=== PATIENT | female | born 1940 | race African-American/Black ===

== ENCOUNTER 2017-02-14 09:37 | Emergency (ER) | payer MEDICARE, MEDICAID ==
[~2017-02-14] VITALS: Ht 170.2 cm; Wt 86.8 kg
[2017-02-14] MEDS ORDERED: FLUO10TA3 PO (10:02)
[2017-02-14] MEDS ORDERED: ALEN70TA48 PO (10:02)
[2017-02-14] MEDS ORDERED: CALC-1085 PO (10:02)
[2017-02-14] MEDS ORDERED: TRAM50TA4 PO (10:02)
[2017-02-14] MEDS ORDERED: ARIP10TA8 PO (10:02)
[2017-02-14] MEDS ORDERED: ONDA4 PO (10:02)
[2017-02-14] MEDS ORDERED: CLON.5 PO (10:02)
[2017-02-14] MEDS ORDERED: BIMA12.5OS OU (10:02)
[2017-02-14] MEDS ORDERED: DIVA250T25 PO (10:02)
[2017-02-14] MEDS ORDERED: HYD50 PO (10:02)
[2017-02-14 10:33] LABS: BASOPHILS % (AUTO) 2.1 % (0.0-2.0); HEMOGLOBIN 13.4 g/dL (12.0-16.0); LYMPHOCYTES # (AUTO) 1.7 K/uL (1.0-4.8); LYMPHOCYTES % (AUTO) 36.6 % (22.0-44.0); MEAN CORPUSCULAR HEMOGLOBIN 30.3 pg (26.0-34.0); MEAN CORPUSCULAR HGB CONC 33.6 G/dL (31.0-37.0); MEAN CORPUSCULAR VOLUME 90 fL (80-100); MONOCYTES # (AUTO) 0.4 K/uL (0.1-1.0); MONOCYTES % (AUTO) 9.3 % (2.0-9.0); NEUTROPHILS # (AUTO) 2.1 K/uL (1.8-7.7); PLATELET COUNT (AUTO) 234 K/uL (150-450); RED BLOOD CELL COUNT(AUTO) 4.44 MIL/uL (4.00-5.20); WHITE BLOOD COUNT (AUTO) 4.5 K/uL (4.5-11.0)
[2017-02-14 10:37] LABS: ANION GAP 5 mmol/L (8-16); CALCIUM, TOTAL 9.2 mg/dL (8.8-10.5); CARBON DIOXIDE 34 mmol/L (22-29); CHLORIDE 101 mmol/L (98-107); CREATININE 0.85 mg/dL (0.60-1.30); GLOMERULAR FILTR. RATE CALC > 60 mL/min (>60); POTASSIUM 4.3 mmol/L (3.5-5.1); SODIUM SERUM 140 mmol/L (136-145); UREA NITROGEN, BLOOD 15 mg/dL (7-18)
[2017-02-14 10:43] LABS: BILIRUBIN,TOTAL 0.5 mg/dL (0.1-1.0)
[2017-02-14 10:44] LABS: ALANINE AMINOTRANSFERASE 13 U/L (12-78); ALBUMIN 3.5 g/dL (3.4-5.0); ASPARTATE AMINOTRANSFERASE 14 U/L (15-37); TOTAL PROTEIN, SERUM 7.5 g/dL (6.4-8.2)
[2017-02-14] MEDS ORDERED: KETOROLAC TROMETHAMINE 30 MG/ML VIAL IVP ONE (11:00)
[2017-02-14 13:47] VITALS: BP 119/75
== END 2017-02-14 13:53 | disposition home or self-care (01) ==
LOC: EMS 09:38
DX: M17.12 Unilateral primary osteoarthritis, left knee (principal)
CPT/HCPCS: 36415; 73562; 80053; 85025; 93005; 93971; 96374; 99285; J1885

== ENCOUNTER 2017-03-17 14:03 | Inpatient (IN) | payer MEDICARE, MEDICAID ==
[~2017-03-17] VITALS: Ht 170.2 cm; Wt 86.2 kg
[~2017-03-17 14:03] MED LIST: ALEN70TA48 PO; ARIP10TA8 PO; BIMA12.5OS OU; CALC-1085 PO; CLON.5 PO; DIVA250T25 PO; FLUO10TA3 PO; HYD50 PO; ONDA4 PO; TRAM50TA4 PO
[2017-03-17 15:32] LABS: BASOPHILS # (AUTO) 0.06 K/uL (0.00-0.20); BASOPHILS % (AUTO) 0.6 % (0.0-2.0); EOSINOPHILS % (AUTO) 0.01 % (1.0-6.0); HEMATOCRIT 39.5 % (36-46); LYMPHOCYTES # (AUTO) 1.8 K/uL (1.0-4.8); LYMPHOCYTES % (AUTO) 16.2 % (22.0-44.0); MEAN CORPUSCULAR HEMOGLOBIN 30.3 pg (26.0-34.0); MEAN CORPUSCULAR HGB CONC 32.9 G/dL (31.0-37.0); MEAN CORPUSCULAR VOLUME 92 fL (80-100); MONOCYTES # (AUTO) 0.7 K/uL (0.1-1.0); MONOCYTES % (AUTO) 6.4 % (2.0-9.0); NEUTROPHILS # (AUTO) 8.4 K/uL (1.8-7.7); NEUTROPHILS % (AUTO) 76.8 % (40.0-70.0); PLATELET COUNT (AUTO) 266 K/uL (150-450); RED BLOOD CELL COUNT(AUTO) 4.29 MIL/uL (4.00-5.20); RED CELL DISTRIBUTION WIDTH 15.2 % (11.5-14.5); WHITE BLOOD COUNT (AUTO) 10.9 K/uL (4.5-11.0)
[2017-03-17 15:39] LABS: ANION GAP 6 mmol/L (8-16); CALCIUM, TOTAL 9.2 mg/dL (8.8-10.5); CARBON DIOXIDE 39 mmol/L (22-29); CHLORIDE 100 mmol/L (98-107); CREATININE 0.81 mg/dL (0.60-1.30); GLOMERULAR FILTR. RATE CALC > 60 mL/min (>60); POTASSIUM 3.2 mmol/L (3.5-5.1); SODIUM SERUM 145 mmol/L (136-145); UREA NITROGEN, BLOOD 25 mg/dL (7-18)
[2017-03-17 15:45] LABS: ALANINE AMINOTRANSFERASE 16 U/L (12-78); ALBUMIN 3.6 g/dL (3.4-5.0); ASPARTATE AMINOTRANSFERASE 14 U/L (15-37); BILIRUBIN,TOTAL 0.5 mg/dL (0.1-1.0); TOTAL PROTEIN, SERUM 7.6 g/dL (6.4-8.2)
[2017-03-17] MEDS ORDERED: QUEtiapine FUMARATE 25 MG TABLET PO PRN (16:15)
[2017-03-17] MEDS ORDERED: MAG HYDROX/AL HYDROX/SIMETH ES 30 ML SUSPENSION UDCUP PO PRN (16:15)
[2017-03-17] MEDS ORDERED: LOPERAMIDE HCL 2 MG CAPSULE PO PRN (16:15)
[2017-03-17] MEDS ORDERED: TUBERCULIN, PURIFIED PROTEIN DERIVATIVE 5 TU/0.1 ML SYG ID ONE (16:15)
[2017-03-17] MEDS ORDERED: GuaiFENesin/D-METHORPHAN [SUGAR-FREE] 200-20MG/10 ML SYRUP UDCUP PO PRN (16:15)
[2017-03-17] MEDS ORDERED: HydrOXYzine PAMOATE 50 MG CAPSULE PO PRN (16:15)
[2017-03-17] MEDS ORDERED: LORazepam 2 MG TABLET PO PRN (16:15)
[2017-03-17] MEDS ORDERED: ZOLPIDEM TARTRATE 10 MG TABLET PO PRN (16:15)
[2017-03-17] MEDS ORDERED: MAGNESIUM HYDROXIDE SUSPENSION 30 ML UDCUP PO PRN (16:15)
[2017-03-17] MEDS ORDERED: ACETAMINOPHEN 325 MG TABLET PO PRN (16:15)
[2017-03-17] MEDS ORDERED: PROMETHAZINE HCL 25 MG TABLET PO PRN (16:15)
[2017-03-17] MEDS ORDERED: POTASSIUM CHLORIDE 20 MEQ ER TABLET PO ONE (19:30)
[2017-03-17 19:38] LABS: APPEARANCE,URINE CLEAR (CLEAR); GLUCOSE, URINE (UA) NEGATIVE (NEGATIVE); KETONES,URINE NEGATIVE (NEGATIVE); LEUKOCYTE ESTERASE ,URINE NEGATIVE (NEGATIVE); OCCULT BLOOD,URINE NEGATIVE (NEGATIVE); PROTEIN,URINE NEGATIVE (NEGATIVE)
[2017-03-17 19:43] LABS: ADD UA MICROSCOPIC NO
[2017-03-17] MEDS: THIAMINE HCL 100 MG TABLET PO SCH (20:00)
[2017-03-17] MEDS: DIVALPROEX SODIUM 500 MG ER TABLET PO SCH (20:00)
[2017-03-17 20:46] VITALS: BP 126/76
[2017-03-18 06:27] VITALS: BP 115/65
[2017-03-18 06:50] LABS: BASOPHILS % (AUTO) 0.3 % (0.0-2.0); EOSINOPHILS % (AUTO) 0.1 % (1.0-6.0); HEMOGLOBIN 12.4 g/dL (12.0-16.0); LYMPHOCYTES # (AUTO) 2.1 K/uL (1.0-4.8); LYMPHOCYTES % (AUTO) 27.6 % (22.0-44.0); MEAN CORPUSCULAR HEMOGLOBIN 30.7 pg (26.0-34.0); MEAN CORPUSCULAR HGB CONC 33.6 G/dL (31.0-37.0); MEAN CORPUSCULAR VOLUME 91 fL (80-100); MONOCYTES # (AUTO) 0.6 K/uL (0.1-1.0); MONOCYTES % (AUTO) 8.4 % (2.0-9.0); NEUTROPHILS # (AUTO) 4.9 K/uL (1.8-7.7); NEUTROPHILS % (AUTO) 63.6 % (40.0-70.0); PLATELET COUNT (AUTO) 255 K/uL (150-450); RED BLOOD CELL COUNT(AUTO) 4.05 MIL/uL (4.00-5.20); RED CELL DISTRIBUTION WIDTH 15.5 % (11.5-14.5); WHITE BLOOD COUNT (AUTO) 7.7 K/uL (4.5-11.0)
[2017-03-18 07:18] LABS: ALANINE AMINOTRANSFERASE 15 U/L (12-78); ALBUMIN 2.9 g/dL (3.4-5.0); ANION GAP 4 mmol/L (8-16); ASPARTATE AMINOTRANSFERASE 11 U/L (15-37); BILIRUBIN,TOTAL 0.4 mg/dL (0.1-1.0); CALCIUM, TOTAL 8.9 mg/dL (8.8-10.5); CARBON DIOXIDE 35 mmol/L (22-29); CHLORIDE 104 mmol/L (98-107); CHOL/HDL RATIO 2.7 (3.9-5.7); CREATININE 0.72 mg/dL (0.60-1.30); GLOMERULAR FILTR. RATE CALC > 60 mL/min (>60); POTASSIUM 3.9 mmol/L (3.5-5.1); SODIUM SERUM 143 mmol/L (136-145); THYROID STIMULATING HORMONE 1.28 uIU/mL (0.36-3.74); UREA NITROGEN, BLOOD 23 mg/dL (7-18); VALPROIC ACID 61 mcg/mL (50-100)
[2017-03-18 07:28] LABS: HEMOGLOBIN A1C 5.5 % (4.5-6.2)
[2017-03-18] MEDS: THIAMINE HCL 100 MG TABLET PO SCH ×2 (08:30→15:55)
[2017-03-18] MEDS: MULTIVITAMINS WITH MINERALS, THERAPEUTIC TABLET PO SCH (08:30)
[2017-03-18] MEDS: POTASSIUM CHLORIDE 20 MEQ ER TABLET PO SCH (08:30)
[2017-03-18] MEDS: CALCIUM OYSTER SHELL 500 MG TABLET PO SCH (08:30)
[2017-03-18] MEDS: BUMETANIDE 1 MG TABLET PO SCH (08:30)
[2017-03-18] MEDS: CHOLECALCIFEROL (VIT D3) 1,000 UNITS TABLET PO SCH (08:30)
[2017-03-18] MEDS: ARIPiprazole 10 MG TABLET PO SCH (08:31)
[2017-03-18] MEDS: BIMATOPROST 0.01% 2.5 ML OPHTHALMIC SOLUTION OU SCH (08:31)
[2017-03-18] MEDS: FOLIC ACID 1 MG TABLET PO SCH (08:31)
[2017-03-18] MEDS: FLUoxetine HCL 20 MG CAPSULE PO SCH (08:31)
[2017-03-18 10:04] VITALS: BP 105/66
[2017-03-18 17:10] VITALS: BP 103/65
[2017-03-18] MEDS: DIVALPROEX SODIUM 500 MG ER TABLET PO SCH (20:09)
[2017-03-19 08:05] VITALS: BP 134/66
[2017-03-19] MEDS: CHOLECALCIFEROL (VIT D3) 1,000 UNITS TABLET PO SCH (08:27)
[2017-03-19] MEDS: MULTIVITAMINS WITH MINERALS, THERAPEUTIC TABLET PO SCH (08:27)
[2017-03-19] MEDS: THIAMINE HCL 100 MG TABLET PO SCH ×2 (08:27→16:38)
[2017-03-19] MEDS: BIMATOPROST 0.01% 2.5 ML OPHTHALMIC SOLUTION OU SCH (08:28)
[2017-03-19] MEDS: BUMETANIDE 1 MG TABLET PO SCH (08:28)
[2017-03-19] MEDS: ARIPiprazole 10 MG TABLET PO SCH (08:28)
[2017-03-19] MEDS: FOLIC ACID 1 MG TABLET PO SCH (08:28)
[2017-03-19] MEDS: FLUoxetine HCL 20 MG CAPSULE PO SCH (08:29)
[2017-03-19] MEDS: POTASSIUM CHLORIDE 20 MEQ ER TABLET PO SCH (08:29)
[2017-03-19] MEDS: CALCIUM OYSTER SHELL 500 MG TABLET PO SCH (08:29)
[2017-03-19 18:06] VITALS: BP 121/67
[2017-03-19] MEDS: DIVALPROEX SODIUM 500 MG ER TABLET PO SCH (21:21)
[2017-03-20] MEDS ORDERED: ALENDRONATE SODIUM 70 MG TABLET PO SCH (06:30)
[2017-03-20 08:15] VITALS: BP 119/70
[2017-03-20] MEDS: ARIPiprazole 10 MG TABLET PO SCH (08:20)
[2017-03-20] MEDS: BUMETANIDE 1 MG TABLET PO SCH (08:20)
[2017-03-20] MEDS: BIMATOPROST 0.01% 2.5 ML OPHTHALMIC SOLUTION OU SCH (08:20)
[2017-03-20] MEDS: POTASSIUM CHLORIDE 20 MEQ ER TABLET PO SCH (08:21)
[2017-03-20] MEDS: FOLIC ACID 1 MG TABLET PO SCH (08:21)
[2017-03-20] MEDS: CALCIUM OYSTER SHELL 500 MG TABLET PO SCH (08:22)
[2017-03-20] MEDS: MULTIVITAMINS WITH MINERALS, THERAPEUTIC TABLET PO SCH (08:27)
[2017-03-20] MEDS: CHOLECALCIFEROL (VIT D3) 1,000 UNITS TABLET PO SCH (08:27)
[2017-03-20] MEDS: THIAMINE HCL 100 MG TABLET PO SCH ×2 (08:27→16:16)
[2017-03-20] MEDS: FLUoxetine HCL 20 MG CAPSULE PO SCH (08:28)
[2017-03-20 17:05] VITALS: BP 124/76
[2017-03-20] MEDS: DIVALPROEX SODIUM 500 MG ER TABLET PO SCH (20:29)
[2017-03-21 08:15] VITALS: BP 121/87
[2017-03-21] MEDS: THIAMINE HCL 100 MG TABLET PO SCH ×2 (08:59→16:35)
[2017-03-21] MEDS: CHOLECALCIFEROL (VIT D3) 1,000 UNITS TABLET PO SCH (08:59)
[2017-03-21] MEDS: ARIPiprazole 10 MG TABLET PO SCH (08:59)
[2017-03-21] MEDS: CALCIUM OYSTER SHELL 500 MG TABLET PO SCH (08:59)
[2017-03-21] MEDS: BIMATOPROST 0.01% 2.5 ML OPHTHALMIC SOLUTION OU SCH (08:59)
[2017-03-21] MEDS: FLUoxetine HCL 20 MG CAPSULE PO SCH (08:59)
[2017-03-21] MEDS: FOLIC ACID 1 MG TABLET PO SCH (08:59)
[2017-03-21] MEDS: POTASSIUM CHLORIDE 20 MEQ ER TABLET PO SCH (08:59)
[2017-03-21] MEDS: MULTIVITAMINS WITH MINERALS, THERAPEUTIC TABLET PO SCH (09:00)
[2017-03-21] MEDS: BUMETANIDE 1 MG TABLET PO SCH (09:00)
[2017-03-21 17:00] VITALS: BP 104/70
[2017-03-21] MEDS: DIVALPROEX SODIUM 500 MG ER TABLET PO SCH (20:15)
[2017-03-22 01:05] VITALS: BP 122/84
[2017-03-22 08:05] VITALS: BP 107/75
[2017-03-22] MEDS: CHOLECALCIFEROL (VIT D3) 1,000 UNITS TABLET PO SCH (09:03)
[2017-03-22] MEDS: BUMETANIDE 1 MG TABLET PO SCH (09:03)
[2017-03-22] MEDS: POTASSIUM CHLORIDE 20 MEQ ER TABLET PO SCH (09:03)
[2017-03-22] MEDS: FOLIC ACID 1 MG TABLET PO SCH (09:03)
[2017-03-22] MEDS: ARIPiprazole 10 MG TABLET PO SCH (09:03)
[2017-03-22] MEDS: CALCIUM OYSTER SHELL 500 MG TABLET PO SCH (09:03)
[2017-03-22] MEDS: MULTIVITAMINS WITH MINERALS, THERAPEUTIC TABLET PO SCH (09:04)
[2017-03-22] MEDS: FLUoxetine HCL 20 MG CAPSULE PO SCH (09:04)
[2017-03-22] MEDS: THIAMINE HCL 100 MG TABLET PO SCH ×2 (09:04→16:24)
[2017-03-22] MEDS: BIMATOPROST 0.01% 2.5 ML OPHTHALMIC SOLUTION OU SCH (09:19)
[2017-03-22 17:00] VITALS: BP 100/68
[2017-03-22] MEDS ORDERED: ARIP10TA8 PO (19:11)
[2017-03-22] MEDS ORDERED: FLUO-191 PO (19:11)
[2017-03-22] MEDS ORDERED: DIVA500T52 PO (19:11)
[2017-03-22] MEDS: DIVALPROEX SODIUM 500 MG ER TABLET PO SCH (20:42)
[2017-03-23] MEDS: BIMATOPROST 0.01% 2.5 ML OPHTHALMIC SOLUTION OU SCH (08:00)
[2017-03-23] MEDS: FOLIC ACID 1 MG TABLET PO SCH (08:00)
[2017-03-23] MEDS: THIAMINE HCL 100 MG TABLET PO SCH (08:00)
[2017-03-23] MEDS: ARIPiprazole 10 MG TABLET PO SCH (08:00)
[2017-03-23] MEDS: MULTIVITAMINS WITH MINERALS, THERAPEUTIC TABLET PO SCH (08:00)
[2017-03-23] MEDS: BUMETANIDE 1 MG TABLET PO SCH (08:00)
[2017-03-23] MEDS: CALCIUM OYSTER SHELL 500 MG TABLET PO SCH (08:00)
[2017-03-23] MEDS: FLUoxetine HCL 20 MG CAPSULE PO SCH (08:01)
[2017-03-23] MEDS: CHOLECALCIFEROL (VIT D3) 1,000 UNITS TABLET PO SCH (08:01)
[2017-03-23] MEDS: POTASSIUM CHLORIDE 20 MEQ ER TABLET PO SCH (08:01)
[2017-03-23 09:41] VITALS: BP 117/76
[2017-03-23] MEDS ORDERED: MULT-1203 PO (11:17)
[2017-03-23] MEDS ORDERED: BUME1TAB17 PO (11:17)
[2017-03-23] MEDS ORDERED: KDUR20 PO (11:19)
== END 2017-03-23 12:00 | disposition home or self-care (01) | DRG 885 ==
LOC: EMS 14:04 → 3EX 17:10
PROVIDERS: ADMIT Psychiatry & Neurology Psychiatry; ATTEND Psychiatry & Neurology Psychiatry
DX: F31.9 Bipolar disorder, unspecified (principal); R45.851 Suicidal ideations; Z91.19 Patient's noncompliance with other medical treatment and regimen; E66.9 Obesity, unspecified; H40.9 Unspecified glaucoma; M19.90 Unspecified osteoarthritis, unspecified site; M81.0 Age-related osteoporosis without current pathological fracture; Z59.9 Problem related to housing and economic circumstances, unspecified; Z65.3 Problems related to other legal circumstances; Z68.32 Body mass index [BMI] 32.0-32.9, adult; Z79.83 Long term (current) use of bisphosphonates; Z79.899 Other long term (current) drug therapy; Z90.49 Acquired absence of other specified parts of digestive tract
CPT/HCPCS: 82306; 83036; 84439; 84443; 86592; 93005; 99285; G0480

== ENCOUNTER 2017-04-11 18:58 | Emergency (ER) | payer MEDICARE, MEDICAID ==
[~2017-04-11] VITALS: Ht 167.6 cm; Wt 90.4 kg
[~2017-04-11 18:58] MED LIST changes: +BUME1TAB17 PO; -CLON.5 PO; -DIVA250T25 PO; +DIVA500T52 PO; +FLUO-191 PO; -FLUO10TA3 PO; -HYD50 PO; +KDUR20 PO; +MULT-1203 PO; -ONDA4 PO; -TRAM50TA4 PO
[2017-04-11] MEDS ORDERED: DIVA125T PO (19:22)
[2017-04-11] MEDS ORDERED: CLON.5 PO (19:22)
[2017-04-11] MEDS ORDERED: SODIUM CHLORIDE 0.9% 1,000 ML IV ONE (19:30)
[2017-04-11] MEDS ORDERED: ACETAMINOPHEN 500 MG TABLET PO ONE ×2 (19:30→23:15)
[2017-04-11 20:48] LABS: BASOPHILS # (AUTO) 0.02 K/uL (0.00-0.20); BASOPHILS % (AUTO) 0.3 % (0.0-2.0); EOSINOPHILS # (AUTO) 0.01 K/uL (0.00-0.70); HEMATOCRIT 37.8 % (36-46); HEMOGLOBIN 12.8 g/dL (12.0-16.0); LYMPHOCYTES # (AUTO) 0.8 K/uL (1.0-4.8); LYMPHOCYTES % (AUTO) 11.4 % (22.0-44.0); MEAN CORPUSCULAR HEMOGLOBIN 30.1 pg (26.0-34.0); MEAN CORPUSCULAR VOLUME 89 fL (80-100); MONOCYTES # (AUTO) 0.6 K/uL (0.1-1.0); MONOCYTES % (AUTO) 7.6 % (2.0-9.0); NEUTROPHILS # (AUTO) 5.9 K/uL (1.8-7.7); NEUTROPHILS % (AUTO) 80.6 % (40.0-70.0); PLATELET COUNT (AUTO) 176 K/uL (150-450); RED BLOOD CELL COUNT(AUTO) 4.27 MIL/uL (4.00-5.20); RED CELL DISTRIBUTION WIDTH 15.3 % (11.5-14.5); WHITE BLOOD COUNT (AUTO) 7.4 K/uL (4.5-11.0)
[2017-04-11 20:57] LABS: LACTIC ACID 2.9 mmol/L (0.4-2.0)
[2017-04-11 20:57] LABS: APPEARANCE,URINE CLOUDY (CLEAR); GLUCOSE, URINE (UA) NEGATIVE (NEGATIVE); KETONES,URINE NEGATIVE (NEGATIVE); LEUKOCYTE ESTERASE ,URINE MODERATE (NEGATIVE); OCCULT BLOOD,URINE TRACE (NEGATIVE); PH,URINE 6.5 (5.0-8.0); PROTEIN,URINE NEGATIVE (NEGATIVE)
[2017-04-11 20:59] LABS: ADD UA MICROSCOPIC YES
[2017-04-11 21:01] LABS: ALANINE AMINOTRANSFERASE 25 U/L (12-78); ALBUMIN 2.5 g/dL (3.4-5.0); ANION GAP 12 mmol/L (8-16); ASPARTATE AMINOTRANSFERASE 34 U/L (15-37); BILIRUBIN,TOTAL 0.5 mg/dL (0.1-1.0); CALCIUM, TOTAL 7.9 mg/dL (8.8-10.5); CARBON DIOXIDE 25 mmol/L (22-29); CHLORIDE 99 mmol/L (98-107); CREATININE 0.89 mg/dL (0.60-1.30); GLOMERULAR FILTR. RATE CALC > 60 mL/min (>60); SODIUM SERUM 136 mmol/L (136-145); TOTAL PROTEIN, SERUM 6.3 g/dL (6.4-8.2); UREA NITROGEN, BLOOD 9 mg/dL (7-18)
[2017-04-11 21:03] LABS: POTASSIUM 2.6 mmol/L (3.5-5.1)
[2017-04-11 21:03] LABS: RBC,URINE 0-2 /HPF (0-2); SQUAMOUS EPITHELIAL CELL,UR Few /LPF (None Seen)
[2017-04-11 21:18] LABS: B-TYPE NATRIURETIC PEPTIDE 18 pg/mL (0-100)
[2017-04-11 21:43] LABS: REFLEX LACTIC ACID? YES YES
[2017-04-11 22:06] LABS: INFLUENZA TYPE B NEGATIVE FOR TYPE B (NEGATIVE)
[2017-04-11] MEDS ORDERED: POTASSIUM CHLORIDE 10% 40 MEQ/30 ML LIQUID UDCUP PO ONE (22:15)
[2017-04-11] MEDS ORDERED: CEPHALEXIN MONOHYDRATE 500 MG CAPSULE PO ONE (23:15)
[2017-04-11] MEDS ORDERED: DIPHENOXYLATE/ATROP 2.5-0.025 MG TABLET PO ONE (23:15)
[2017-04-11 23:30] VITALS: BP 109/62
== END 2017-04-11 23:53 | disposition home or self-care (01) ==
LOC: EMS 19:02
DX: K52.9 Noninfective gastroenteritis and colitis, unspecified (principal); E87.6 Hypokalemia
CPT/HCPCS: 36415; 74176; 80053; 81001; 83605; 83880; 85025; 87040; 87077; 87086; 87186; 87804; 93005; 96360; 99285; J7030

== ENCOUNTER 2017-10-17 19:29 | Emergency (ER) | payer MEDICARE, MEDICAID ==
[~2017-10-17] VITALS: Ht 170.2 cm; Wt 96.4 kg
[~2017-10-17 19:29] MED LIST changes: +CLON.5 PO; +DIVA125T PO; -DIVA500T52 PO
[2017-10-17] MEDS ORDERED: TRAM50TA4 PO (19:48)
[2017-10-17 21:18] LABS: APPEARANCE,URINE CLEAR (CLEAR); BILIRUBIN,URINE NEGATIVE (NEGATIVE); GLUCOSE, URINE (UA) NEGATIVE (NEGATIVE); KETONES,URINE NEGATIVE (NEGATIVE); LEUKOCYTE ESTERASE ,URINE TRACE (NEGATIVE); NITRATE,URINE NEGATIVE (NEGATIVE); OCCULT BLOOD,URINE NEGATIVE (NEGATIVE); PH,URINE 6.5 (5.0-8.0); PROTEIN,URINE NEGATIVE (NEGATIVE)
[2017-10-17 21:30] LABS: BACTERIA,URINE Rare /HPF (None Seen); RBC,URINE 0-2 /HPF (0-2); SQUAMOUS EPITHELIAL CELL,UR Many /LPF (None Seen)
[2017-10-17] MEDS ORDERED: KETOROLAC TROMETHAMINE 30 MG/ML VIAL IM ONE (22:00)
[2017-10-17 22:33] VITALS: BP 119/58
== END 2017-10-17 22:55 | disposition home or self-care (01) ==
LOC: EMS 19:30
DX: M25.551 Pain in right hip (principal)
CPT/HCPCS: 73502; 81001; 96372; 99285; J1885

== ENCOUNTER 2018-05-05 18:04 | Emergency (ER) | payer MEDICARE, MEDICAID ==
[~2018-05-05] VITALS: Ht 170.2 cm; Wt 94.1 kg
[~2018-05-05 18:04] MED LIST changes: -ALEN70TA48 PO; -BIMA12.5OS OU; -DIVA125T PO; +DIVA125T32 PO; +TRAM50TA4 PO
[2018-05-05 20:11] LABS: BASOPHILS % (AUTO) 0.2 % (0.0-2.0); EOSINOPHILS % (AUTO) 1.7 % (1.0-6.0); HEMATOCRIT 40.7 % (36-46); HEMOGLOBIN 13.7 g/dL (12.0-16.0); LYMPHOCYTES # (AUTO) 2.7 K/uL (1.0-4.8); LYMPHOCYTES % (AUTO) 38.5 % (22.0-44.0); MEAN CORPUSCULAR HEMOGLOBIN 30.8 pg (26.0-34.0); MEAN CORPUSCULAR HGB CONC 33.5 G/dL (31.0-37.0); MEAN CORPUSCULAR VOLUME 92 fL (80-100); MONOCYTES # (AUTO) 0.5 K/uL (0.1-1.0); MONOCYTES % (AUTO) 7.5 % (2.0-9.0); NEUTROPHILS # (AUTO) 3.6 K/uL (1.8-7.7); NEUTROPHILS % (AUTO) 52.1 % (40.0-70.0); PLATELET COUNT (AUTO) 260 K/uL (150-450); RED BLOOD CELL COUNT(AUTO) 4.44 MIL/uL (4.00-5.20); RED CELL DISTRIBUTION WIDTH 14.5 % (11.5-14.5)
[2018-05-05 20:36] LABS: ANION GAP 6 mmol/L (8-16); CALCIUM, TOTAL 9.2 mg/dL (8.8-10.5); CARBON DIOXIDE 30 mmol/L (22-29); CHLORIDE 107 mmol/L (98-107); CREATININE 0.61 mg/dL (0.60-1.30); GLUCOSE,RANDOM 80 mg/dL (70-110); SODIUM SERUM 143 mmol/L (136-145); UREA NITROGEN, BLOOD 8 mg/dL (7-18)
[2018-05-05 20:37] LABS: GLOMERULAR FILTR. RATE CALC > 60 mL/min (>60)
[2018-05-05 20:43] LABS: ALANINE AMINOTRANSFERASE 20 U/L (12-78); ALBUMIN 3.3 g/dL (3.4-5.0); ALKALINE PHOSPHATASE 49 U/L (46-116); ASPARTATE AMINOTRANSFERASE 20 U/L (15-37); BILIRUBIN,TOTAL 0.9 mg/dL (0.1-1.0); TOTAL PROTEIN, SERUM 6.4 g/dL (6.4-8.2)
[2018-05-05 20:54] LABS: VALPROIC ACID < 3 mcg/mL (50-100)
[2018-05-05 22:34] LABS: AMPHET/METH SCREEN,URINE NEGATIVE (NEGATIVE); BARBITURATE SCREEN, URINE NEGATIVE (NEGATIVE); BENZODIAZEPINES SCREEN,URINE NEGATIVE (NEGATIVE); CANNABINOID SCREEN,URINE NEGATIVE (NEGATIVE); COCAINE SCREEN,URINE NEGATIVE (NEGATIVE); METHADONE SCREEN, URINE NEGATIVE (NEGATIVE); OPIATE SCREEN,URINE NEGATIVE (NEGATIVE)
[2018-05-05 22:35] LABS: PHENCYCLIDINE SCREEN,URINE NEGATIVE (NEGATIVE)
[2018-05-05 22:43] VITALS: BP 128/68
== END 2018-05-05 22:44 | disposition home or self-care (01) ==
LOC: EMS 18:05
DX: R45.851 Suicidal ideations (principal); F32.9 Major depressive disorder, single episode, unspecified; M19.90 Unspecified osteoarthritis, unspecified site
CPT/HCPCS: 36415; 80053; 80164; 80307; 85025; 99285; G0480

== ENCOUNTER 2018-05-17 14:53 | Emergency (ER) | payer MEDICARE, MEDICAID ==
[~2018-05-17] VITALS: Ht 170.2 cm; Wt 106.8 kg
[2018-05-17 16:33] LABS: BASOPHILS % (AUTO) 0.4 % (0.0-2.0); HEMATOCRIT 40.6 % (36-46); HEMOGLOBIN 13.5 g/dL (12.0-16.0); LYMPHOCYTES # (AUTO) 2.2 K/uL (1.0-4.8); LYMPHOCYTES % (AUTO) 35.8 % (22.0-44.0); MEAN CORPUSCULAR HEMOGLOBIN 30.6 pg (26.0-34.0); MEAN CORPUSCULAR HGB CONC 33.3 G/dL (31.0-37.0); MEAN CORPUSCULAR VOLUME 92 fL (80-100); MONOCYTES # (AUTO) 0.4 K/uL (0.1-1.0); MONOCYTES % (AUTO) 6.9 % (2.0-9.0); NEUTROPHILS # (AUTO) 3.5 K/uL (1.8-7.7); NEUTROPHILS % (AUTO) 55.9 % (40.0-70.0); PLATELET COUNT (AUTO) 200 K/uL (150-450); RED BLOOD CELL COUNT(AUTO) 4.43 MIL/uL (4.00-5.20); RED CELL DISTRIBUTION WIDTH 14.3 % (11.5-14.5)
[2018-05-17 16:43] LABS: ANION GAP 4 mmol/L (8-16); CALCIUM, TOTAL 9.2 mg/dL (8.8-10.5); CARBON DIOXIDE 33 mmol/L (22-29); CHLORIDE 101 mmol/L (98-107); CREATININE 0.65 mg/dL (0.60-1.30); GLOMERULAR FILTR. RATE CALC > 60 mL/min (>60); GLUCOSE,RANDOM 78 mg/dL (70-110); POTASSIUM 4.4 mmol/L (3.5-5.1); SODIUM SERUM 138 mmol/L (136-145); UREA NITROGEN, BLOOD 11 mg/dL (7-18)
[2018-05-17 16:52] LABS: ALANINE AMINOTRANSFERASE 11 U/L (12-78); ALBUMIN 3.1 g/dL (3.4-5.0); ALKALINE PHOSPHATASE 41 U/L (46-116); ASPARTATE AMINOTRANSFERASE 15 U/L (15-37); BILIRUBIN,TOTAL 0.7 mg/dL (0.1-1.0); TOTAL PROTEIN, SERUM 6.3 g/dL (6.4-8.2); VALPROIC ACID 110 mcg/mL (50-100)
[2018-05-17 16:56] VITALS: BP 109/71
== END 2018-05-17 18:07 | disposition home or self-care (01) ==
LOC: EMS 14:54
DX: S30.0XXA Contusion of lower back and pelvis, initial encounter (principal); T42.6X5A Adverse effect of other antiepileptic and sedative-hypnotic drugs, initial encounter; R53.1 Weakness; R42 Dizziness and giddiness; F32.9 Major depressive disorder, single episode, unspecified; Y92.89 Other specified places as the place of occurrence of the external cause; W01.0XXA Fall on same level from slipping, tripping and stumbling without subsequent striking against object, initial encounter; Y93.89 Activity, other specified; Y99.8 Other external cause status
CPT/HCPCS: 70450; 72170

== ENCOUNTER 2019-05-12 16:45 | Emergency (ER) | payer MEDICARE, OTHER ==
[~2019-05-12] VITALS: Ht 165.1 cm; Wt 79.5 kg
[~2019-05-12 16:45] MED LIST changes: -BUME1TAB17 PO; +BUME1TAB34 PO
[2019-05-12 18:08] LABS: BASOPHILS % (AUTO) 0.5 % (0.0-2.0); EOSINOPHILS % (AUTO) 0.1 % (1.0-6.0); HEMOGLOBIN 11.3 g/dL (12.0-16.0); LYMPHOCYTES # (AUTO) 1.9 K/uL (1.0-4.8); LYMPHOCYTES % (AUTO) 25.6 % (22.0-44.0); MEAN CORPUSCULAR HEMOGLOBIN 30.4 pg (26.0-34.0); MEAN CORPUSCULAR HGB CONC 33.4 G/dL (31.0-37.0); MEAN CORPUSCULAR VOLUME 91 fL (80-100); MONOCYTES # (AUTO) 0.5 K/uL (0.1-1.0); MONOCYTES % (AUTO) 6.4 % (2.0-9.0); NEUTROPHILS # (AUTO) 5.1 K/uL (1.8-7.7); NEUTROPHILS % (AUTO) 67.4 % (40.0-70.0); PLATELET COUNT (AUTO) 337 K/uL (150-450); RED BLOOD CELL COUNT(AUTO) 3.73 MIL/uL (4.00-5.20); RED CELL DISTRIBUTION WIDTH 15.5 % (11.5-14.5)
[2019-05-12 18:19] LABS: ANION GAP 10 mmol/L (8-16); CALCIUM, TOTAL 9.6 mg/dL (8.8-10.5); CARBON DIOXIDE 26 mmol/L (22-29); CHLORIDE 112 mmol/L (98-107); CREATININE 1.05 mg/dL (0.60-1.30); GLUCOSE,RANDOM 90 mg/dL (70-110); POTASSIUM 4.8 mmol/L (3.5-5.1); SODIUM SERUM 148 mmol/L (136-145); UREA NITROGEN, BLOOD 18 mg/dL (7-18)
[2019-05-12 18:23] LABS: GLOMERULAR FILTR. RATE CALC > 60 mL/min (>60)
[2019-05-12 18:26] LABS: ALANINE AMINOTRANSFERASE 29 U/L (12-78); ALBUMIN 3.3 g/dL (3.4-5.0); ALKALINE PHOSPHATASE 54 U/L (46-116); ASPARTATE AMINOTRANSFERASE 16 U/L (15-37); BILIRUBIN,TOTAL 0.6 mg/dL (0.1-1.0); TOTAL PROTEIN, SERUM 6.6 g/dL (6.4-8.2)
[2019-05-12 22:51] VITALS: BP 131/77
== END 2019-05-12 23:27 | disposition short-term general hospital (02) ==
LOC: EMS 16:48
DX: F32.9 Major depressive disorder, single episode, unspecified (principal)
CPT/HCPCS: 36415; 80053; 85025; 99285; G0480

== ENCOUNTER 2020-04-08 18:02 | Inpatient (IN) | payer MEDICARE, OTHER ==
[~2020-04-08] VITALS: Ht 170.2 cm; Wt 77.8 kg
[~2020-04-08 18:02] MED LIST changes: +CLON-592 PO; -CLON.5 PO; -KDUR20 PO; +POTA20TA83 PO
[2020-04-08] MEDS ORDERED: 0.9% SODIUM CHLORIDE 10 ML SYRINGE IVP PRN ×2 (18:30→21:15)
[2020-04-08 19:48] LABS: BASOPHILS % (AUTO) 0.5 % (0.0-2.0); EOSINOPHILS % (AUTO) 1.2 % (1.0-6.0); HEMATOCRIT 36.9 % (36-46); HEMOGLOBIN 11.9 g/dL (12.0-16.0); LYMPHOCYTES # (AUTO) 2.2 K/uL (1.0-4.8); LYMPHOCYTES % (AUTO) 11.2 % (22.0-44.0); MEAN CORPUSCULAR HEMOGLOBIN 28.6 pg (26.0-34.0); MEAN CORPUSCULAR HGB CONC 32.3 G/dL (31.0-37.0); MEAN CORPUSCULAR VOLUME 89 fL (80-100); MONOCYTES # (AUTO) 1.8 K/uL (0.1-1.0); MONOCYTES % (AUTO) 9.2 % (2.0-9.0); NEUTROPHILS # (AUTO) 15.1 K/uL (1.8-7.7); NEUTROPHILS % (AUTO) 77.9 % (40.0-70.0); PLATELET COUNT (AUTO) 370 K/uL (150-450); RED BLOOD CELL COUNT(AUTO) 4.16 MIL/uL (4.00-5.20); RED CELL DISTRIBUTION WIDTH 18.5 % (11.5-14.5)
[2020-04-08 19:48] LABS: COVID AG,FIA SOURCE NASOPHARYNGEAL
[2020-04-08 19:57] LABS: ANION GAP 7 mmol/L (8-16); CALCIUM, TOTAL 9.1 mg/dL (8.8-10.5); CARBON DIOXIDE 28 mmol/L (22-29); CHLORIDE 105 mmol/L (98-107); GLUCOSE,RANDOM 90 mg/dL (70-110); POTASSIUM 3.8 mmol/L (3.5-5.1); SODIUM SERUM 140 mmol/L (136-145); UREA NITROGEN, BLOOD 16 mg/dL (7-18)
[2020-04-08 19:59] LABS: D-DIMER 1.95 mg/L FEU (0.00-0.50); PROTHROMBIN TIME 10.3 SEC (9.4-11.6)
[2020-04-08 20:01] LABS: GLOMERULAR FILTR. RATE CALC > 60 mL/min (>60)
[2020-04-08 20:08] LABS: ALANINE AMINOTRANSFERASE 9 U/L (12-78); ALKALINE PHOSPHATASE 52 U/L (46-116); ASPARTATE AMINOTRANSFERASE 11 U/L (15-37); BILIRUBIN,TOTAL 0.5 mg/dL (0.1-1.0); TOTAL PROTEIN, SERUM 7.7 g/dL (6.4-8.2)
[2020-04-08 20:12] LABS: B-TYPE NATRIURETIC PEPTIDE 8 pg/mL (0-100)
[2020-04-08 20:16] LABS: LACTIC ACID 3.1 mmol/L (0.4-2.0)
[2020-04-08 20:51] LABS: VALPROIC ACID 103 mcg/mL (50-100)
[2020-04-08] MEDS ORDERED: PIPERACILLIN/TAZO 3.375 GM/D5W 50 ML IV ONE (21:00)
[2020-04-08] MEDS ORDERED: SODIUM CHLORIDE 0.9% 1,000 ML IV ONE (21:00)
[2020-04-08] MEDS ORDERED: SODIUM CHLORIDE 0.9% 100 ML ONE (21:11)
[2020-04-08] MEDS ORDERED: IOVERSOL 350 MG/ML 100 ML VIAL ONE (21:12)
[2020-04-08 21:13] LABS: INFLUENZA TYPE A NEGATIVE FOR TYPE A (NEGATIVE); INFLUENZA TYPE B NEGATIVE FOR TYPE B (NEGATIVE)
[2020-04-08] MEDS ORDERED: ONDANSETRON HCL 4 MG/2 ML VIAL IVP PRN (21:15)
[2020-04-08] MEDS ORDERED: ACETAMINOPHEN 325 MG TABLET PO PRN (21:15)
[2020-04-08 21:35] LABS: APPEARANCE,URINE CLEAR (CLEAR); GLUCOSE, URINE (UA) NEGATIVE (NEGATIVE); KETONES,URINE TRACE mg/dL (NEGATIVE); LEUKOCYTE ESTERASE ,URINE SMALL (NEGATIVE); NITRATE,URINE NEGATIVE (NEGATIVE); OCCULT BLOOD,URINE MODERATE (NEGATIVE); PH,URINE 5.5 (5.0-8.0); PROTEIN,URINE POS 1+ (NEGATIVE); UROBILINOGEN,URINE 0.2 mg/dL (<=1.0)
[2020-04-08 21:39] LABS: BILIRUBIN,URINE PRELIM. POSITIVE (NEGATIVE)
[2020-04-08 21:45] LABS: BACTERIA,URINE Few /HPF (None Seen); SQUAMOUS EPITHELIAL CELL,UR Few /LPF (None Seen)
[2020-04-08 23:09] VITALS: BP 122/58
[2020-04-08 23:52] VITALS: BP 127/83
[2020-04-09] VITALS (7 sets, daily range): BP systolic 86–110; BP diastolic 50–60
[2020-04-09] MEDS: HEPARIN SODIUM,PORCINE 5,000 UNITS/ML VIAL SQ SCH ×4 (01:46→23:51)
[2020-04-09] MEDS: FAMOTIDINE 20 MG TABLET PO SCH ×2 (08:42→20:22)
[2020-04-09] MEDS: DOCUSATE SODIUM 100 MG CAPSULE PO SCH ×2 (08:42→20:22)
[2020-04-09 11:28] LABS: BASOPHILS % (AUTO) 0.5 % (0.0-2.0); EOSINOPHILS % (AUTO) 0.7 % (1.0-6.0); HEMATOCRIT 32.4 % (36-46); HEMOGLOBIN 10.8 g/dL (12.0-16.0); LYMPHOCYTES # (AUTO) 2.3 K/uL (1.0-4.8); LYMPHOCYTES % (AUTO) 12.4 % (22.0-44.0); MEAN CORPUSCULAR HEMOGLOBIN 29.5 pg (26.0-34.0); MEAN CORPUSCULAR HGB CONC 33.4 G/dL (31.0-37.0); MEAN CORPUSCULAR VOLUME 88 fL (80-100); MONOCYTES % (AUTO) 10.7 % (2.0-9.0); NEUTROPHILS # (AUTO) 14.1 K/uL (1.8-7.7); NEUTROPHILS % (AUTO) 75.7 % (40.0-70.0); PLATELET COUNT (AUTO) 322 K/uL (150-450); RED BLOOD CELL COUNT(AUTO) 3.67 MIL/uL (4.00-5.20); RED CELL DISTRIBUTION WIDTH 18.3 % (11.5-14.5)
[2020-04-09 12:20] LABS: ALANINE AMINOTRANSFERASE 6 U/L (12-78); ALBUMIN 2.2 g/dL (3.4-5.0); ALKALINE PHOSPHATASE 40 U/L (46-116); ANION GAP 9 mmol/L (8-16); ASPARTATE AMINOTRANSFERASE 12 U/L (15-37); BILIRUBIN,TOTAL 0.3 mg/dL (0.1-1.0); CALCIUM, TOTAL 8.1 mg/dL (8.8-10.5); CARBON DIOXIDE 26 mmol/L (22-29); CHLORIDE 104 mmol/L (98-107); CREATININE 0.85 mg/dL (0.60-1.30); GLOMERULAR FILTR. RATE CALC > 60 mL/min (>60); GLUCOSE,RANDOM 102 mg/dL (70-110); POTASSIUM 3.4 mmol/L (3.5-5.1); SODIUM SERUM 139 mmol/L (136-145); TOTAL PROTEIN, SERUM 5.8 g/dL (6.4-8.2); UREA NITROGEN, BLOOD 15 mg/dL (7-18)
[2020-04-09] MEDS: CefTRIAXone 1 GM/DEXTROSE 50 ML IV SCH (13:15)
[2020-04-09] MEDS: ACETAMINOPHEN 325 MG TABLET PO PRN (20:22)
[2020-04-10 04:30] VITALS: BP 103/56
[2020-04-10 07:42] LABS: BASOPHILS % (AUTO) 0.8 % (0.0-2.0); HEMATOCRIT 31.1 % (36-46); HEMOGLOBIN 10.5 g/dL (12.0-16.0); LYMPHOCYTES % (AUTO) 20.8 % (22.0-44.0); MEAN CORPUSCULAR HEMOGLOBIN 29.6 pg (26.0-34.0); MEAN CORPUSCULAR HGB CONC 33.9 G/dL (31.0-37.0); MEAN CORPUSCULAR VOLUME 87 fL (80-100); MONOCYTES # (AUTO) 1.9 K/uL (0.1-1.0); MONOCYTES % (AUTO) 13.3 % (2.0-9.0); NEUTROPHILS # (AUTO) 9.1 K/uL (1.8-7.7); NEUTROPHILS % (AUTO) 63.1 % (40.0-70.0); PLATELET COUNT (AUTO) 281 K/uL (150-450); RED BLOOD CELL COUNT(AUTO) 3.56 MIL/uL (4.00-5.20); RED CELL DISTRIBUTION WIDTH 18.4 % (11.5-14.5)
[2020-04-10 08:24] VITALS: BP 102/59
[2020-04-10] MEDS: CefTRIAXone 1 GM/DEXTROSE 50 ML IV SCH (09:06)
[2020-04-10] MEDS: HEPARIN SODIUM,PORCINE 5,000 UNITS/ML VIAL SQ SCH ×2 (09:06→16:26)
[2020-04-10] MEDS: FAMOTIDINE 20 MG TABLET PO SCH ×2 (09:06→20:15)
[2020-04-10] MEDS: DOCUSATE SODIUM 100 MG CAPSULE PO SCH ×2 (09:06→20:15)
[2020-04-10] MEDS: ACETAMINOPHEN 325 MG TABLET PO PRN ×2 (16:26→20:16)
[2020-04-10 16:36] VITALS: BP 92/51
[2020-04-10 19:53] VITALS: BP 98/55
[2020-04-10] MEDS: DIVALPROEX SODIUM 500 MG DR TABLET PO SCH (21:05)
[2020-04-10] MEDS: MIRTAZAPINE 15 MG TABLET PO SCH (21:05)
[2020-04-11] VITALS: BP 95/54
[2020-04-11] MEDS: HEPARIN SODIUM,PORCINE 5,000 UNITS/ML VIAL SQ SCH ×3 (00:21→15:51)
[2020-04-11 04:04] VITALS: BP 95/59
[2020-04-11 06:40] LABS: BASOPHILS % (AUTO) 0.8 % (0.0-2.0); EOSINOPHILS % (AUTO) 5.7 % (1.0-6.0); HEMOGLOBIN 9.5 g/dL (12.0-16.0); LYMPHOCYTES # (AUTO) 3.7 K/uL (1.0-4.8); LYMPHOCYTES % (AUTO) 31.2 % (22.0-44.0); MEAN CORPUSCULAR HEMOGLOBIN 29.6 pg (26.0-34.0); MEAN CORPUSCULAR HGB CONC 33.9 G/dL (31.0-37.0); MEAN CORPUSCULAR VOLUME 87 fL (80-100); MONOCYTES # (AUTO) 1.5 K/uL (0.1-1.0); NEUTROPHILS # (AUTO) 5.8 K/uL (1.8-7.7); NEUTROPHILS % (AUTO) 49.3 % (40.0-70.0); PLATELET COUNT (AUTO) 261 K/uL (150-450); RED CELL DISTRIBUTION WIDTH 18.5 % (11.5-14.5)
[2020-04-11 06:58] LABS: ANION GAP 0 mmol/L (8-16); CALCIUM, TOTAL 8.2 mg/dL (8.8-10.5); CARBON DIOXIDE 29 mmol/L (22-29); CHLORIDE 106 mmol/L (98-107); CREATININE 0.85 mg/dL (0.60-1.30); GLUCOSE,RANDOM 99 mg/dL (70-110); POTASSIUM 3.5 mmol/L (3.5-5.1); SODIUM SERUM 135 mmol/L (136-145); UREA NITROGEN, BLOOD 14 mg/dL (7-18)
[2020-04-11 06:59] LABS: GLOMERULAR FILTR. RATE CALC > 60 mL/min (>60)
[2020-04-11 08:53] VITALS: BP 98/64
[2020-04-11] MEDS: DIVALPROEX SODIUM 500 MG DR TABLET PO SCH ×2 (09:08→20:27)
[2020-04-11] MEDS: ARIPiprazole 5 MG TABLET PO SCH (09:08)
[2020-04-11] MEDS: DOCUSATE SODIUM 100 MG CAPSULE PO SCH ×2 (09:08→20:27)
[2020-04-11] MEDS: FAMOTIDINE 20 MG TABLET PO SCH ×2 (09:08→20:27)
[2020-04-11] MEDS: CefTRIAXone 1 GM/DEXTROSE 50 ML IV SCH (09:14)
[2020-04-11 15:54] VITALS: BP 98/64
[2020-04-11 19:00] VITALS: BP 102/71
[2020-04-11] MEDS ORDERED: TraMADol HCL 50 MG TABLET PO PRN (20:15)
[2020-04-11] MEDS: MIRTAZAPINE 15 MG TABLET PO SCH (20:27)
[2020-04-12 05:21] VITALS: BP 97/60
[2020-04-12 08:31] VITALS: BP 96/67
[2020-04-12] MEDS: ARIPiprazole 5 MG TABLET PO SCH (09:31)
[2020-04-12] MEDS: FAMOTIDINE 20 MG TABLET PO SCH (09:31)
[2020-04-12] MEDS: DIVALPROEX SODIUM 500 MG DR TABLET PO SCH (09:31)
[2020-04-12] MEDS: CefTRIAXone 1 GM/DEXTROSE 50 ML IV SCH (09:31)
[2020-04-12] MEDS: HEPARIN SODIUM,PORCINE 5,000 UNITS/ML VIAL SQ SCH ×2 (09:32)
[2020-04-12] MEDS: DOCUSATE SODIUM 100 MG CAPSULE PO SCH (09:33)
[2020-04-12] MEDS ORDERED: LEVE500T8 PO (12:29)
[2020-04-12] MEDS ORDERED: FAMO20TA8 PO (12:33)
[2020-04-12] MEDS ORDERED: MIRT-89 PO (12:34)
[2020-04-12] MEDS ORDERED: ACET-3207 PO (12:37)
[2020-04-12] MEDS ORDERED: DOCU100C33 PO (12:40)
[2020-04-12] MEDS ORDERED: LEVE500T53 PO (12:46)
[2020-04-12 18:06] LABS: GLUCOMETER DEV NAME(LOC) 6N.2; GLUCOSE,POINT OF CARE 72 MG/DL (70-110)
== END 2020-04-12 13:00 | DRG 690 ==
LOC: EMS 18:02 → 6N 21:26
PROVIDERS: ADMIT Internal Medicine; ATTEND Internal Medicine
DX: N39.0 Urinary tract infection, site not specified (principal); R45.851 Suicidal ideations; F33.2 Major depressive disorder, recurrent severe without psychotic features; R65.10 Systemic inflammatory response syndrome (SIRS) of non-infectious origin without acute organ dysfunction; F03.90 Unspecified dementia, unspecified severity, without behavioral disturbance, psychotic disturbance, mood disturbance, and anxiety; M19.90 Unspecified osteoarthritis, unspecified site; Z90.49 Acquired absence of other specified parts of digestive tract; Z79.899 Other long term (current) drug therapy; Z20.828 Contact with and (suspected) exposure to other viral communicable diseases
CPT/HCPCS: 51702; 74177; 83605; 85379; 87040; 87086; 87426; 87804; 93005; 97116; 97162; 97530; J0696; J1644; J2405; J2543; J7030; J7050; 36415-L1; 36415-TC; 71045-TC; U0003

== ENCOUNTER 2020-04-12 09:40 | Inpatient (IN) | payer MEDICARE, MEDICAID ==
[~2020-04-12] VITALS: Ht 170.2 cm; Wt 78.9 kg
[2020-04-12] MEDS ORDERED: ZOLPIDEM TARTRATE 10 MG TABLET PO PRN (11:45)
[2020-04-12] MEDS ORDERED: LORazepam 2 MG TABLET PO PRN (11:45)
[2020-04-12] MEDS ORDERED: HALOPERIDOL 5 MG TABLET PO PRN (11:45)
[2020-04-12] MEDS ORDERED: LEVE500T8 PO (12:29)
[2020-04-12] MEDS ORDERED: FAMO20TA8 PO (12:33)
[2020-04-12] MEDS ORDERED: MIRT-89 PO (12:34)
[2020-04-12] MEDS ORDERED: ACET-3207 PO (12:37)
[2020-04-12] MEDS ORDERED: DOCU100C33 PO (12:40)
[2020-04-12] MEDS ORDERED: LEVE500T53 PO (12:46)
[2020-04-12 14:00] VITALS: BP 98/55
[2020-04-12 14:19] VITALS: BP 103/69
[2020-04-12] MEDS ORDERED: ACETAMINOPHEN 325 MG TABLET PO PRN (15:30)
[2020-04-12] MEDS ORDERED: INFLUENZA VIRUS VACCINE QVS 2020-21 (6MO+)/PF 60 MCG/0.5 ML SYRINGE IM ONE (15:45)
[2020-04-12] MEDS ORDERED: PNEUMOCOCCAL VACCINE POLYVALENT 0.5 ML VIAL [PPSV23] IM ONE (15:45)
[2020-04-12 16:29] VITALS: BP 98/55
[2020-04-12] MEDS: LevETIRAcetam 500 MG TABLET PO SCH ×2 (17:10→20:54)
[2020-04-12] MEDS: TraMADol HCL 50 MG TABLET PO PRN (17:11)
[2020-04-12] MEDS: DIVALPROEX SODIUM 500 MG DR TABLET PO SCH (20:54)
[2020-04-12] MEDS: FAMOTIDINE 20 MG TABLET PO SCH (21:00)
[2020-04-12] MEDS: MIRTAZAPINE 15 MG TABLET PO SCH (21:00)
[2020-04-13] MEDS ORDERED: MAGNESIUM HYDROXIDE SUSPENSION 30 ML UDCUP PO PRN (07:15)
[2020-04-13] MEDS ORDERED: NICOTINE 14 MG/24 HOUR PATCH TD PRN (07:15)
[2020-04-13] MEDS ORDERED: CloNIDine HCL 0.1 MG TABLET PO PRN (07:15)
[2020-04-13] MEDS ORDERED: PETROLATUM,WHITE 28 GM JELLY TP PRN (07:15)
[2020-04-13] MEDS ORDERED: ONDANSETRON HCL 4 MG TABLET PO PRN (07:15)
[2020-04-13] MEDS ORDERED: GuaiFENesin/D-METHORPHAN [SUGAR-FREE] 200-20MG/10 ML SYRUP UDCUP PO PRN (07:15)
[2020-04-13] MEDS ORDERED: LOPERAMIDE HCL 2 MG CAPSULE PO PRN (07:15)
[2020-04-13] MEDS ORDERED: ALBUTEROL SULFATE HFA 90 MCG/PUFF 8 GM INHALER IH PRN (07:15)
[2020-04-13] MEDS ORDERED: DOCUSATE SODIUM 100 MG CAPSULE PO PRN (07:15)
[2020-04-13] MEDS ORDERED: ACETAMINOPHEN 325 MG TABLET PO PRN (07:15)
[2020-04-13 08:46] VITALS: BP 119/76
[2020-04-13] MEDS: POTASSIUM CHLORIDE 20 MEQ ER TABLET PO SCH (09:00)
[2020-04-13] MEDS ORDERED: FAMOTIDINE 20 MG TABLET PO SCH (09:00)
[2020-04-13] MEDS: BUMETANIDE 1 MG TABLET PO SCH (10:44)
[2020-04-13] MEDS: FAMOTIDINE 20 MG TABLET PO SCH ×2 (10:44→16:25)
[2020-04-13] MEDS: DIVALPROEX SODIUM 500 MG DR TABLET PO SCH ×2 (10:44→20:41)
[2020-04-13] MEDS: ARIPiprazole 5 MG TABLET PO SCH (10:44)
[2020-04-13] MEDS: LevETIRAcetam 500 MG TABLET PO SCH ×2 (10:44→16:25)
[2020-04-13] MEDS: TraMADol HCL 50 MG TABLET PO PRN (11:54)
[2020-04-13 11:55] VITALS: BP 107/75
[2020-04-13 16:12] VITALS: BP 121/79
[2020-04-13] MEDS: CEPHALEXIN MONOHYDRATE 500 MG CAPSULE PO SCH (16:24)
[2020-04-13] MEDS: MIRTAZAPINE 15 MG TABLET PO SCH (20:41)
[2020-04-14 08:00] VITALS: BP 123/68
[2020-04-14] MEDS: DIVALPROEX SODIUM 500 MG DR TABLET PO SCH ×2 (09:11→21:00)
[2020-04-14] MEDS: LevETIRAcetam 500 MG TABLET PO SCH ×2 (09:11→16:38)
[2020-04-14] MEDS: ARIPiprazole 5 MG TABLET PO SCH (09:11)
[2020-04-14] MEDS: FAMOTIDINE 20 MG TABLET PO SCH ×2 (09:11→16:38)
[2020-04-14] MEDS: CEPHALEXIN MONOHYDRATE 500 MG CAPSULE PO SCH ×3 (09:12→16:38)
[2020-04-14] MEDS: POTASSIUM CHLORIDE 20 MEQ ER TABLET PO SCH (09:20)
[2020-04-14 16:40] VITALS: BP 112/65
[2020-04-14] MEDS: MIRTAZAPINE 15 MG TABLET PO SCH (21:00)
[2020-04-15] MEDS: MAG HYDROX/AL HYDROX/SIMETH ES 30 ML SUSPENSION UDCUP PO PRN (08:11)
[2020-04-15 08:28] VITALS: BP 102/70
[2020-04-15 09:59] LABS: COVID AG,FIA SOURCE NASOPHARYNGEAL
[2020-04-15] MEDS: ARIPiprazole 5 MG TABLET PO SCH (09:59)
[2020-04-15] MEDS: FAMOTIDINE 20 MG TABLET PO SCH ×2 (09:59→16:16)
[2020-04-15] MEDS: DIVALPROEX SODIUM 500 MG DR TABLET PO SCH ×2 (09:59→20:19)
[2020-04-15] MEDS: CEPHALEXIN MONOHYDRATE 500 MG CAPSULE PO SCH ×3 (09:59→16:16)
[2020-04-15] MEDS: POTASSIUM CHLORIDE 20 MEQ ER TABLET PO SCH (09:59)
[2020-04-15] MEDS: BUMETANIDE 1 MG TABLET PO SCH (10:00)
[2020-04-15] MEDS: LevETIRAcetam 500 MG TABLET PO SCH ×2 (10:00→16:15)
[2020-04-15 16:00] VITALS: BP 146/95
[2020-04-15] MEDS: MIRTAZAPINE 15 MG TABLET PO SCH (20:19)
[2020-04-16] MEDS: ARIPiprazole 5 MG TABLET PO SCH (08:42)
[2020-04-16] MEDS: CEPHALEXIN MONOHYDRATE 500 MG CAPSULE PO SCH ×3 (08:44→16:57)
[2020-04-16] MEDS: FAMOTIDINE 20 MG TABLET PO SCH ×2 (08:44→16:57)
[2020-04-16] MEDS: POTASSIUM CHLORIDE 20 MEQ ER TABLET PO SCH (08:46)
[2020-04-16] MEDS: LevETIRAcetam 500 MG TABLET PO SCH ×2 (08:46→16:57)
[2020-04-16] MEDS: DIVALPROEX SODIUM 500 MG DR TABLET PO SCH ×2 (08:46→20:23)
[2020-04-16 16:26] VITALS: BP 103/71
[2020-04-17 08:05] VITALS: BP 128/96
[2020-04-17] MEDS: ARIPiprazole 10 MG TABLET PO SCH (09:28)
[2020-04-17] MEDS: FAMOTIDINE 20 MG TABLET PO SCH ×2 (09:28→16:28)
[2020-04-17] MEDS: CEPHALEXIN MONOHYDRATE 500 MG CAPSULE PO SCH ×3 (09:29→16:28)
[2020-04-17] MEDS: BUMETANIDE 1 MG TABLET PO SCH (09:29)
[2020-04-17] MEDS: POTASSIUM CHLORIDE 20 MEQ ER TABLET PO SCH (09:31)
[2020-04-17] MEDS: LevETIRAcetam 500 MG TABLET PO SCH ×2 (09:31→16:28)
[2020-04-17] MEDS: DIVALPROEX SODIUM 500 MG DR TABLET PO SCH ×2 (09:31→21:08)
[2020-04-17] MEDS: ESCITALOPRAM OXALATE 10 MG TABLET PO SCH (12:01)
[2020-04-17 17:14] VITALS: BP 90/62
[2020-04-18 08:45] VITALS: BP 100/60
[2020-04-18] MEDS: CEPHALEXIN MONOHYDRATE 500 MG CAPSULE PO SCH ×3 (09:33→16:23)
[2020-04-18] MEDS: ARIPiprazole 10 MG TABLET PO SCH (09:33)
[2020-04-18] MEDS: POTASSIUM CHLORIDE 20 MEQ ER TABLET PO SCH (09:33)
[2020-04-18] MEDS: DIVALPROEX SODIUM 500 MG DR TABLET PO SCH ×2 (09:33→21:01)
[2020-04-18] MEDS: LevETIRAcetam 500 MG TABLET PO SCH ×2 (09:33→16:23)
[2020-04-18] MEDS: FAMOTIDINE 20 MG TABLET PO SCH ×2 (09:33→16:23)
[2020-04-18] MEDS: ESCITALOPRAM OXALATE 10 MG TABLET PO SCH (09:33)
[2020-04-18 16:00] VITALS: BP 100/68
[2020-04-19] MEDS: MAG HYDROX/AL HYDROX/SIMETH ES 30 ML SUSPENSION UDCUP PO PRN (08:55)
[2020-04-19] MEDS: LevETIRAcetam 500 MG TABLET PO SCH ×2 (08:55→16:49)
[2020-04-19 08:56] VITALS: BP 88/36
[2020-04-19] MEDS: CEPHALEXIN MONOHYDRATE 500 MG CAPSULE PO SCH ×3 (08:56→16:49)
[2020-04-19] MEDS: ESCITALOPRAM OXALATE 10 MG TABLET PO SCH (08:56)
[2020-04-19] MEDS: FAMOTIDINE 20 MG TABLET PO SCH ×2 (08:56→16:49)
[2020-04-19] MEDS: ARIPiprazole 10 MG TABLET PO SCH (08:56)
[2020-04-19] MEDS: BUMETANIDE 1 MG TABLET PO SCH (08:57)
[2020-04-19] MEDS: DIVALPROEX SODIUM 500 MG DR TABLET PO SCH ×2 (08:57→20:45)
[2020-04-19] MEDS: POTASSIUM CHLORIDE 20 MEQ ER TABLET PO SCH (08:57)
[2020-04-19 16:33] VITALS: BP 104/70
[2020-04-20 08:24] VITALS: BP 81/45
[2020-04-20] MEDS: CEPHALEXIN MONOHYDRATE 500 MG CAPSULE PO SCH ×2 (08:32→14:23)
[2020-04-20] MEDS: ARIPiprazole 10 MG TABLET PO SCH (08:32)
[2020-04-20] MEDS: FAMOTIDINE 20 MG TABLET PO SCH ×2 (08:32→16:05)
[2020-04-20] MEDS: ESCITALOPRAM OXALATE 10 MG TABLET PO SCH (08:34)
[2020-04-20] MEDS: POTASSIUM CHLORIDE 20 MEQ ER TABLET PO SCH (08:41)
[2020-04-20] MEDS: DIVALPROEX SODIUM 500 MG DR TABLET PO SCH ×2 (08:41→20:31)
[2020-04-20] MEDS: LevETIRAcetam 500 MG TABLET PO SCH ×2 (08:42→16:05)
[2020-04-20 16:00] VITALS: BP 96/69
[2020-04-21 08:15] VITALS: BP 99/65
[2020-04-21] MEDS: ESCITALOPRAM OXALATE 10 MG TABLET PO SCH (08:32)
[2020-04-21] MEDS: ARIPiprazole 10 MG TABLET PO SCH (08:32)
[2020-04-21] MEDS: POTASSIUM CHLORIDE 20 MEQ ER TABLET PO SCH (08:32)
[2020-04-21] MEDS: FAMOTIDINE 20 MG TABLET PO SCH ×2 (08:32→16:35)
[2020-04-21] MEDS: LevETIRAcetam 500 MG TABLET PO SCH ×2 (08:32→16:35)
[2020-04-21] MEDS: BUMETANIDE 1 MG TABLET PO SCH (08:33)
[2020-04-21] MEDS: DIVALPROEX SODIUM 500 MG DR TABLET PO SCH ×2 (08:33→20:51)
[2020-04-21 12:03] LABS: COVID AG,FIA SOURCE NASOPHARYNGEAL
[2020-04-21 16:00] VITALS: BP 100/52
[2020-04-22] MEDS: ARIPiprazole 10 MG TABLET PO SCH (08:08)
[2020-04-22] MEDS: POTASSIUM CHLORIDE 20 MEQ ER TABLET PO SCH (08:08)
[2020-04-22] MEDS: LevETIRAcetam 500 MG TABLET PO SCH ×2 (08:08→16:07)
[2020-04-22] MEDS: DIVALPROEX SODIUM 500 MG DR TABLET PO SCH ×2 (08:08→20:28)
[2020-04-22] MEDS: FAMOTIDINE 20 MG TABLET PO SCH ×2 (08:09→16:07)
[2020-04-22] MEDS: ESCITALOPRAM OXALATE 10 MG TABLET PO SCH (08:09)
[2020-04-22 10:23] VITALS: BP 101/63
[2020-04-22 11:04] LABS: COVID AG,FIA SOURCE NASOPHARYNGEAL
[2020-04-22 16:01] VITALS: BP 108/71
[2020-04-23] MEDS: LevETIRAcetam 500 MG TABLET PO SCH ×2 (08:35→16:45)
[2020-04-23] MEDS: FAMOTIDINE 20 MG TABLET PO SCH ×2 (08:35→16:45)
[2020-04-23] MEDS: ARIPiprazole 10 MG TABLET PO SCH (08:35)
[2020-04-23] MEDS: POTASSIUM CHLORIDE 20 MEQ ER TABLET PO SCH (08:35)
[2020-04-23] MEDS: DIVALPROEX SODIUM 500 MG DR TABLET PO SCH ×2 (08:35→20:22)
[2020-04-23] MEDS: ESCITALOPRAM OXALATE 10 MG TABLET PO SCH (08:35)
[2020-04-23] MEDS: BUMETANIDE 1 MG TABLET PO SCH (08:35)
[2020-04-23 08:40] VITALS: BP 97/60
[2020-04-23 08:42] VITALS: BP 97/60
[2020-04-23 16:02] VITALS: BP 101/60
[2020-04-24 05:52] VITALS: BP 94/50
[2020-04-24] MEDS: ARIPiprazole 10 MG TABLET PO SCH (08:42)
[2020-04-24] MEDS: DIVALPROEX SODIUM 500 MG DR TABLET PO SCH ×2 (08:42→20:16)
[2020-04-24] MEDS: FAMOTIDINE 20 MG TABLET PO SCH ×2 (08:42→16:35)
[2020-04-24] MEDS: ESCITALOPRAM OXALATE 10 MG TABLET PO SCH (08:43)
[2020-04-24 08:51] VITALS: BP 98/51
[2020-04-24 09:11] VITALS: BP 98/51
[2020-04-24] MEDS: LevETIRAcetam 500 MG TABLET PO SCH ×2 (10:34→16:35)
[2020-04-24] MEDS: POTASSIUM CHLORIDE 20 MEQ ER TABLET PO SCH (10:34)
[2020-04-24 16:08] VITALS: BP 109/75
[2020-04-25] MEDS: POTASSIUM CHLORIDE 20 MEQ ER TABLET PO SCH (08:22)
[2020-04-25] MEDS: DIVALPROEX SODIUM 500 MG DR TABLET PO SCH ×2 (08:22→20:50)
[2020-04-25] MEDS: LevETIRAcetam 500 MG TABLET PO SCH ×2 (08:22→17:14)
[2020-04-25] MEDS: ARIPiprazole 10 MG TABLET PO SCH (08:23)
[2020-04-25] MEDS: BUMETANIDE 1 MG TABLET PO SCH (08:23)
[2020-04-25 09:27] VITALS: BP 85/59
[2020-04-25] MEDS: FAMOTIDINE 20 MG TABLET PO SCH ×2 (09:54→17:14)
[2020-04-25] MEDS: ESCITALOPRAM OXALATE 10 MG TABLET PO SCH (09:54)
[2020-04-25 17:48] VITALS: BP 110/80
[2020-04-26 00:37] VITALS: BP 98/68
[2020-04-26 08:06] VITALS: BP 129/63
[2020-04-26] MEDS: ARIPiprazole 10 MG TABLET PO SCH (08:48)
[2020-04-26] MEDS: FAMOTIDINE 20 MG TABLET PO SCH ×2 (08:49→16:22)
[2020-04-26] MEDS: ESCITALOPRAM OXALATE 10 MG TABLET PO SCH (08:49)
[2020-04-26] MEDS: LevETIRAcetam 500 MG TABLET PO SCH ×2 (08:49→16:22)
[2020-04-26] MEDS: DIVALPROEX SODIUM 500 MG DR TABLET PO SCH ×2 (08:49→20:26)
[2020-04-26] MEDS: POTASSIUM CHLORIDE 20 MEQ ER TABLET PO SCH (08:52)
[2020-04-26 14:13] LABS: COVID AG,FIA SOURCE NASAL SWAB
[2020-04-26 16:09] VITALS: BP 98/58
[2020-04-27 06:21] VITALS: BP 100/60
[2020-04-27 08:11] VITALS: BP 91/63
[2020-04-27] MEDS: ARIPiprazole 10 MG TABLET PO SCH (08:26)
[2020-04-27] MEDS: FAMOTIDINE 20 MG TABLET PO SCH ×2 (08:26→16:05)
[2020-04-27] MEDS: BUMETANIDE 1 MG TABLET PO SCH (08:26)
[2020-04-27] MEDS: LevETIRAcetam 500 MG TABLET PO SCH ×2 (08:26→16:05)
[2020-04-27] MEDS: ESCITALOPRAM OXALATE 10 MG TABLET PO SCH (08:26)
[2020-04-27] MEDS: DIVALPROEX SODIUM 500 MG DR TABLET PO SCH ×2 (08:26→20:00)
[2020-04-27] MEDS: POTASSIUM CHLORIDE 20 MEQ ER TABLET PO SCH (08:27)
[2020-04-27 18:20] VITALS: BP 100/53
[2020-04-28 08:40] VITALS: BP 103/55
[2020-04-28] MEDS: FAMOTIDINE 20 MG TABLET PO SCH ×2 (08:41→16:33)
[2020-04-28] MEDS: ESCITALOPRAM OXALATE 10 MG TABLET PO SCH (08:41)
[2020-04-28] MEDS: DIVALPROEX SODIUM 500 MG DR TABLET PO SCH ×2 (08:41→20:08)
[2020-04-28] MEDS: LevETIRAcetam 500 MG TABLET PO SCH ×2 (08:41→16:33)
[2020-04-28] MEDS: POTASSIUM CHLORIDE 20 MEQ ER TABLET PO SCH (08:41)
[2020-04-28] MEDS: ARIPiprazole 10 MG TABLET PO SCH (08:41)
[2020-04-28 18:26] VITALS: BP 99/69
[2020-04-29 09:05] VITALS: BP 105/68
[2020-04-29] MEDS: ESCITALOPRAM OXALATE 10 MG TABLET PO SCH (09:26)
[2020-04-29] MEDS: LevETIRAcetam 500 MG TABLET PO SCH ×2 (09:26→16:30)
[2020-04-29] MEDS: DIVALPROEX SODIUM 500 MG DR TABLET PO SCH ×2 (09:26→20:27)
[2020-04-29] MEDS: ARIPiprazole 10 MG TABLET PO SCH (09:26)
[2020-04-29] MEDS: BUMETANIDE 1 MG TABLET PO SCH (09:26)
[2020-04-29] MEDS: POTASSIUM CHLORIDE 20 MEQ ER TABLET PO SCH (09:26)
[2020-04-29] MEDS: FAMOTIDINE 20 MG TABLET PO SCH ×2 (09:27→16:30)
[2020-04-29] MEDS: MAG HYDROX/AL HYDROX/SIMETH ES 30 ML SUSPENSION UDCUP PO PRN (15:23)
[2020-04-29 16:00] VITALS: BP 95/65
[2020-04-30] MEDS: FAMOTIDINE 20 MG TABLET PO SCH ×2 (08:01→16:01)
[2020-04-30] MEDS: ARIPiprazole 10 MG TABLET PO SCH (08:01)
[2020-04-30] MEDS: ESCITALOPRAM OXALATE 10 MG TABLET PO SCH (08:02)
[2020-04-30] MEDS: DIVALPROEX SODIUM 500 MG DR TABLET PO SCH ×2 (08:04→21:07)
[2020-04-30] MEDS: POTASSIUM CHLORIDE 20 MEQ ER TABLET PO SCH (08:04)
[2020-04-30] MEDS: LevETIRAcetam 500 MG TABLET PO SCH ×2 (08:04→16:01)
[2020-04-30 09:23] VITALS: BP 97/61
[2020-04-30 16:11] VITALS: BP 119/73
[2020-05-01 00:01] VITALS: BP 101/60
[2020-05-01 08:00] VITALS: BP 100/60
[2020-05-01] MEDS: LevETIRAcetam 500 MG TABLET PO SCH ×2 (08:01→16:50)
[2020-05-01] MEDS: DIVALPROEX SODIUM 500 MG DR TABLET PO SCH ×2 (08:01→21:50)
[2020-05-01] MEDS: ARIPiprazole 10 MG TABLET PO SCH (08:01)
[2020-05-01] MEDS: ESCITALOPRAM OXALATE 10 MG TABLET PO SCH (08:02)
[2020-05-01] MEDS: FAMOTIDINE 20 MG TABLET PO SCH ×2 (08:02→16:50)
[2020-05-01] MEDS: BUMETANIDE 1 MG TABLET PO SCH (08:02)
[2020-05-01] MEDS: POTASSIUM CHLORIDE 20 MEQ ER TABLET PO SCH (08:14)
[2020-05-01 16:00] VITALS: BP 102/65
[2020-05-02 01:40] VITALS: BP 91/60
[2020-05-02] MEDS: TraMADol HCL 50 MG TABLET PO PRN ×2 (01:42→11:45)
[2020-05-02 08:21] VITALS: BP 100/66
[2020-05-02] MEDS: ARIPiprazole 10 MG TABLET PO SCH (08:45)
[2020-05-02] MEDS: LevETIRAcetam 500 MG TABLET PO SCH ×2 (08:46→16:04)
[2020-05-02] MEDS: DIVALPROEX SODIUM 500 MG DR TABLET PO SCH ×2 (08:46→20:17)
[2020-05-02] MEDS: ESCITALOPRAM OXALATE 10 MG TABLET PO SCH (08:47)
[2020-05-02] MEDS: FAMOTIDINE 20 MG TABLET PO SCH ×2 (08:47→16:04)
[2020-05-02] MEDS: POTASSIUM CHLORIDE 20 MEQ ER TABLET PO SCH (08:50)
[2020-05-02 11:54] VITALS: BP 95/68
[2020-05-02 12:55] VITALS: BP 94/51
[2020-05-02 16:31] VITALS: BP 98/67
[2020-05-03 06:40] VITALS: BP 100/52
[2020-05-03] MEDS: TraMADol HCL 50 MG TABLET PO PRN (06:40)
[2020-05-03 08:00] VITALS: BP 94/58
[2020-05-03] MEDS: BUMETANIDE 1 MG TABLET PO SCH (08:30)
[2020-05-03] MEDS: POTASSIUM CHLORIDE 20 MEQ ER TABLET PO SCH (08:30)
[2020-05-03] MEDS: ARIPiprazole 10 MG TABLET PO SCH (08:30)
[2020-05-03] MEDS: LevETIRAcetam 500 MG TABLET PO SCH ×2 (08:30→17:04)
[2020-05-03] MEDS: ESCITALOPRAM OXALATE 10 MG TABLET PO SCH (08:31)
[2020-05-03] MEDS: DIVALPROEX SODIUM 500 MG DR TABLET PO SCH ×2 (08:31→20:27)
[2020-05-03] MEDS: FAMOTIDINE 20 MG TABLET PO SCH ×2 (08:31→17:04)
[2020-05-03] MEDS: IBUPROFEN 400 MG TABLET PO PRN ×2 (08:32→17:51)
[2020-05-03 09:00] VITALS: BP 99/54
[2020-05-03 16:04] VITALS: BP 98/96
[2020-05-03 17:26] LABS: COVID AG,FIA SOURCE NASOPHARYNGEAL
[2020-05-04] MEDS: FAMOTIDINE 20 MG TABLET PO SCH ×2 (08:22→16:01)
[2020-05-04] MEDS: ARIPiprazole 10 MG TABLET PO SCH (08:22)
[2020-05-04] MEDS: ESCITALOPRAM OXALATE 10 MG TABLET PO SCH (08:22)
[2020-05-04] MEDS: POTASSIUM CHLORIDE 20 MEQ ER TABLET PO SCH (08:24)
[2020-05-04] MEDS: LevETIRAcetam 500 MG TABLET PO SCH ×2 (08:24→16:01)
[2020-05-04] MEDS: DIVALPROEX SODIUM 500 MG DR TABLET PO SCH ×2 (08:24→20:28)
[2020-05-04 08:27] VITALS: BP 113/71
[2020-05-04 16:23] VITALS: BP 102/72
[2020-05-04 19:16] LABS: APPEARANCE,URINE TURBID (CLEAR); BILIRUBIN,URINE NEGATIVE (NEGATIVE); GLUCOSE, URINE (UA) NEGATIVE (NEGATIVE); KETONES,URINE TRACE mg/dL (NEGATIVE); LEUKOCYTE ESTERASE ,URINE LARGE (NEGATIVE); NITRATE,URINE NEGATIVE (NEGATIVE); OCCULT BLOOD,URINE LARGE (NEGATIVE); PROTEIN,URINE SEE CONFIRM (NEGATIVE); UROBILINOGEN,URINE 0.2 mg/dL (<=1.0)
[2020-05-04 19:24] LABS: BACTERIA,URINE Few /HPF (None Seen); RBC,URINE 26-50 /HPF (0-2); SQUAMOUS EPITHELIAL CELL,UR Rare /LPF (None Seen); WBC,URINE Full Field /HPF (0-5)
[2020-05-04 19:25] LABS: SULFOSALICYLIC ACID,URINE 4+ (Negative)
[2020-05-05 08:20] VITALS: BP 107/63
[2020-05-05] MEDS: BUMETANIDE 1 MG TABLET PO SCH (09:06)
[2020-05-05] MEDS: DIVALPROEX SODIUM 500 MG DR TABLET PO SCH ×2 (09:06→20:01)
[2020-05-05] MEDS: POTASSIUM CHLORIDE 20 MEQ ER TABLET PO SCH (09:06)
[2020-05-05] MEDS: LevETIRAcetam 500 MG TABLET PO SCH ×2 (09:06→16:02)
[2020-05-05] MEDS: ARIPiprazole 10 MG TABLET PO SCH (09:06)
[2020-05-05] MEDS: LEVOFLOXACIN 500 MG TABLET PO SCH (09:07)
[2020-05-05] MEDS: PANTOPRAZOLE SODIUM 40 MG DR TABLET PO SCH (09:07)
[2020-05-05] MEDS: ESCITALOPRAM OXALATE 10 MG TABLET PO SCH (09:07)
[2020-05-05 16:14] VITALS: BP 119/76
[2020-05-06] MEDS: ARIPiprazole 10 MG TABLET PO SCH (08:35)
[2020-05-06] MEDS: ESCITALOPRAM OXALATE 10 MG TABLET PO SCH (08:35)
[2020-05-06] MEDS: PANTOPRAZOLE SODIUM 40 MG DR TABLET PO SCH (08:35)
[2020-05-06] MEDS: POTASSIUM CHLORIDE 20 MEQ ER TABLET PO SCH (08:35)
[2020-05-06] MEDS: LevETIRAcetam 500 MG TABLET PO SCH ×2 (08:35→16:03)
[2020-05-06] MEDS: DIVALPROEX SODIUM 500 MG DR TABLET PO SCH ×2 (08:35→20:21)
[2020-05-06] MEDS: LEVOFLOXACIN 500 MG TABLET PO SCH (08:35)
[2020-05-06 08:42] VITALS: BP 111/77
[2020-05-06 10:51] LABS: BASOPHILS % (AUTO) 0.4 % (0.0-2.0); HEMATOCRIT 31.3 % (36-46); HEMOGLOBIN 10.5 g/dL (12.0-16.0); LYMPHOCYTES # (AUTO) 3.5 K/uL (1.0-4.8); MEAN CORPUSCULAR HEMOGLOBIN 29.8 pg (26.0-34.0); MEAN CORPUSCULAR HGB CONC 33.7 G/dL (31.0-37.0); MEAN CORPUSCULAR VOLUME 88 fL (80-100); MONOCYTES # (AUTO) 1.1 K/uL (0.1-1.0); MONOCYTES % (AUTO) 12.7 % (2.0-9.0); NEUTROPHILS # (AUTO) 3.7 K/uL (1.8-7.7); NEUTROPHILS % (AUTO) 42.9 % (40.0-70.0); PLATELET COUNT (AUTO) 299 K/uL (150-450); RED BLOOD CELL COUNT(AUTO) 3.53 MIL/uL (4.00-5.20); RED CELL DISTRIBUTION WIDTH 19.1 % (11.5-14.5)
[2020-05-06] MEDS: HYDROCORTISONE 25 MG RECTAL SUPPOSITORY PR SCH (16:03)
[2020-05-06 16:33] VITALS: BP 110/76
[2020-05-07 08:32] VITALS: BP 104/68
[2020-05-07] MEDS: HYDROCORTISONE 25 MG RECTAL SUPPOSITORY PR SCH ×2 (09:00→16:06)
[2020-05-07] MEDS: PANTOPRAZOLE SODIUM 40 MG DR TABLET PO SCH (09:47)
[2020-05-07] MEDS: ESCITALOPRAM OXALATE 10 MG TABLET PO SCH (09:47)
[2020-05-07] MEDS: BUMETANIDE 1 MG TABLET PO SCH (09:48)
[2020-05-07] MEDS: LevETIRAcetam 500 MG TABLET PO SCH ×2 (09:48→16:03)
[2020-05-07] MEDS: ARIPiprazole 10 MG TABLET PO SCH (09:48)
[2020-05-07] MEDS: POTASSIUM CHLORIDE 20 MEQ ER TABLET PO SCH (09:48)
[2020-05-07] MEDS: DIVALPROEX SODIUM 500 MG DR TABLET PO SCH ×2 (09:48→21:32)
[2020-05-07] MEDS: LEVOFLOXACIN 500 MG TABLET PO SCH (09:48)
[2020-05-07 16:00] VITALS: BP 93/63
[2020-05-08 08:33] VITALS: BP 99/63
[2020-05-08] MEDS: ARIPiprazole 10 MG TABLET PO SCH (09:44)
[2020-05-08] MEDS: LEVOFLOXACIN 500 MG TABLET PO SCH (09:45)
[2020-05-08] MEDS: POTASSIUM CHLORIDE 20 MEQ ER TABLET PO SCH (09:45)
[2020-05-08] MEDS: PANTOPRAZOLE SODIUM 40 MG DR TABLET PO SCH (09:45)
[2020-05-08] MEDS: LevETIRAcetam 500 MG TABLET PO SCH ×2 (09:45→16:08)
[2020-05-08] MEDS: DIVALPROEX SODIUM 500 MG DR TABLET PO SCH ×2 (09:45→20:02)
[2020-05-08] MEDS: HYDROCORTISONE 25 MG RECTAL SUPPOSITORY PR SCH ×2 (09:46→16:08)
[2020-05-08] MEDS: ESCITALOPRAM OXALATE 10 MG TABLET PO SCH (09:46)
[2020-05-08 16:30] VITALS: BP 103/66
[2020-05-09 04:05] VITALS: BP 101/66
[2020-05-09] MEDS: DIVALPROEX SODIUM 500 MG DR TABLET PO SCH ×2 (08:21→20:07)
[2020-05-09] MEDS: ESCITALOPRAM OXALATE 10 MG TABLET PO SCH (08:21)
[2020-05-09] MEDS: PANTOPRAZOLE SODIUM 40 MG DR TABLET PO SCH (08:21)
[2020-05-09] MEDS: LevETIRAcetam 500 MG TABLET PO SCH ×2 (08:21→16:02)
[2020-05-09] MEDS: BUMETANIDE 1 MG TABLET PO SCH (08:22)
[2020-05-09] MEDS: ARIPiprazole 10 MG TABLET PO SCH (08:22)
[2020-05-09] MEDS: LEVOFLOXACIN 500 MG TABLET PO SCH (08:22)
[2020-05-09] MEDS: POTASSIUM CHLORIDE 20 MEQ ER TABLET PO SCH (08:24)
[2020-05-09 09:02] VITALS: BP 104/65
[2020-05-09] MEDS: HYDROCORTISONE 25 MG RECTAL SUPPOSITORY PR SCH ×2 (12:30→16:41)
[2020-05-09 16:00] VITALS: BP 91/61
[2020-05-10 07:29] LABS: BASOPHILS % (AUTO) 0.4 % (0.0-2.0); EOSINOPHILS % (AUTO) 3.9 % (1.0-6.0); HEMATOCRIT 28.8 % (36-46); HEMOGLOBIN 9.8 g/dL (12.0-16.0); LYMPHOCYTES % (AUTO) 41.2 % (22.0-44.0); MEAN CORPUSCULAR HEMOGLOBIN 29.9 pg (26.0-34.0); MEAN CORPUSCULAR HGB CONC 33.8 G/dL (31.0-37.0); MEAN CORPUSCULAR VOLUME 88 fL (80-100); MONOCYTES % (AUTO) 9.8 % (2.0-9.0); NEUTROPHILS # (AUTO) 4.4 K/uL (1.8-7.7); NEUTROPHILS % (AUTO) 44.7 % (40.0-70.0); PLATELET COUNT (AUTO) 277 K/uL (150-450); RED BLOOD CELL COUNT(AUTO) 3.26 MIL/uL (4.00-5.20); RED CELL DISTRIBUTION WIDTH 19.7 % (11.5-14.5)
[2020-05-10] MEDS: HYDROCORTISONE 25 MG RECTAL SUPPOSITORY PR SCH ×2 (09:00→16:50)
[2020-05-10] MEDS: ARIPiprazole 10 MG TABLET PO SCH (09:29)
[2020-05-10] MEDS: ESCITALOPRAM OXALATE 20 MG TABLET PO SCH (09:29)
[2020-05-10] MEDS: LevETIRAcetam 500 MG TABLET PO SCH ×2 (09:29→16:50)
[2020-05-10] MEDS: POTASSIUM CHLORIDE 20 MEQ ER TABLET PO SCH (09:29)
[2020-05-10] MEDS: PANTOPRAZOLE SODIUM 40 MG DR TABLET PO SCH (09:29)
[2020-05-10] MEDS: DIVALPROEX SODIUM 500 MG DR TABLET PO SCH ×2 (09:29→20:37)
[2020-05-10 09:56] VITALS: BP 99/62
[2020-05-10 14:31] LABS: COVID AG,FIA SOURCE NASOPHARYNGEAL
[2020-05-10 16:00] VITALS: BP 103/62
[2020-05-11 09:26] VITALS: BP 98/68
[2020-05-11] MEDS: DIVALPROEX SODIUM 500 MG DR TABLET PO SCH ×2 (09:28→20:55)
[2020-05-11] MEDS: BUMETANIDE 1 MG TABLET PO SCH (09:28)
[2020-05-11] MEDS: ARIPiprazole 10 MG TABLET PO SCH (09:30)
[2020-05-11] MEDS: ESCITALOPRAM OXALATE 20 MG TABLET PO SCH (09:30)
[2020-05-11] MEDS: LevETIRAcetam 500 MG TABLET PO SCH ×2 (09:30→16:37)
[2020-05-11] MEDS: PANTOPRAZOLE SODIUM 40 MG DR TABLET PO SCH (09:30)
[2020-05-11] MEDS: POTASSIUM CHLORIDE 20 MEQ ER TABLET PO SCH (09:30)
[2020-05-11] MEDS: HYDROCORTISONE 25 MG RECTAL SUPPOSITORY PR SCH ×2 (10:00→16:37)
[2020-05-11 16:16] VITALS: BP 148/80
[2020-05-12 08:00] VITALS: BP 107/68
[2020-05-12] MEDS: LevETIRAcetam 500 MG TABLET PO SCH ×2 (09:52→17:10)
[2020-05-12] MEDS: ARIPiprazole 10 MG TABLET PO SCH (09:52)
[2020-05-12] MEDS: HYDROCORTISONE 25 MG RECTAL SUPPOSITORY PR SCH ×2 (09:52→17:00)
[2020-05-12] MEDS: PANTOPRAZOLE SODIUM 40 MG DR TABLET PO SCH (09:52)
[2020-05-12] MEDS: ESCITALOPRAM OXALATE 20 MG TABLET PO SCH (09:52)
[2020-05-12] MEDS: POTASSIUM CHLORIDE 20 MEQ ER TABLET PO SCH (09:52)
[2020-05-12] MEDS: DIVALPROEX SODIUM 500 MG DR TABLET PO SCH ×2 (09:52→20:55)
[2020-05-12 16:00] VITALS: BP 104/64
[2020-05-13] VITALS: BP 101/60
[2020-05-13] MEDS: TraMADol HCL 50 MG TABLET PO PRN (00:02)
[2020-05-13 08:56] VITALS: BP 91/64
[2020-05-13] MEDS: HYDROCORTISONE 25 MG RECTAL SUPPOSITORY PR SCH ×2 (09:00→16:40)
[2020-05-13] MEDS: BUMETANIDE 1 MG TABLET PO SCH (09:03)
[2020-05-13] MEDS: ESCITALOPRAM OXALATE 20 MG TABLET PO SCH (09:03)
[2020-05-13] MEDS: ARIPiprazole 10 MG TABLET PO SCH (09:03)
[2020-05-13] MEDS: PANTOPRAZOLE SODIUM 40 MG DR TABLET PO SCH (09:03)
[2020-05-13] MEDS: POTASSIUM CHLORIDE 20 MEQ ER TABLET PO SCH (09:03)
[2020-05-13] MEDS: LevETIRAcetam 500 MG TABLET PO SCH ×2 (09:04→16:40)
[2020-05-13] MEDS: DIVALPROEX SODIUM 500 MG DR TABLET PO SCH ×2 (09:04→20:50)
[2020-05-13 16:00] VITALS: BP 114/69
[2020-05-14 08:33] VITALS: BP 101/67
[2020-05-14] MEDS: DIVALPROEX SODIUM 500 MG DR TABLET PO SCH ×2 (08:44→20:45)
[2020-05-14] MEDS: PANTOPRAZOLE SODIUM 40 MG DR TABLET PO SCH (08:44)
[2020-05-14] MEDS: ARIPiprazole 10 MG TABLET PO SCH (08:44)
[2020-05-14] MEDS: ESCITALOPRAM OXALATE 20 MG TABLET PO SCH (08:44)
[2020-05-14] MEDS: POTASSIUM CHLORIDE 20 MEQ ER TABLET PO SCH (08:44)
[2020-05-14] MEDS: LevETIRAcetam 500 MG TABLET PO SCH ×2 (08:44→17:29)
[2020-05-14] MEDS: HYDROCORTISONE 25 MG RECTAL SUPPOSITORY PR SCH (09:00)
[2020-05-14] MEDS ORDERED: HYDROCORTISONE 25 MG RECTAL SUPPOSITORY PR PRN (13:15)
[2020-05-14 17:30] VITALS: BP 107/60
[2020-05-15] MEDS: LevETIRAcetam 500 MG TABLET PO SCH ×2 (08:16→16:10)
[2020-05-15] MEDS: DIVALPROEX SODIUM 500 MG DR TABLET PO SCH ×2 (08:16→20:16)
[2020-05-15] MEDS: PANTOPRAZOLE SODIUM 40 MG DR TABLET PO SCH (08:16)
[2020-05-15] MEDS: ESCITALOPRAM OXALATE 20 MG TABLET PO SCH (08:17)
[2020-05-15] MEDS: BUMETANIDE 1 MG TABLET PO SCH (08:17)
[2020-05-15] MEDS: ARIPiprazole 10 MG TABLET PO SCH (08:17)
[2020-05-15] MEDS: POTASSIUM CHLORIDE 20 MEQ ER TABLET PO SCH (08:36)
[2020-05-15 17:18] VITALS: BP 102/60
[2020-05-16 06:02] VITALS: BP 108/66
[2020-05-16] MEDS: POTASSIUM CHLORIDE 20 MEQ ER TABLET PO SCH (08:53)
[2020-05-16] MEDS: DIVALPROEX SODIUM 500 MG DR TABLET PO SCH ×2 (08:53→20:16)
[2020-05-16] MEDS: ESCITALOPRAM OXALATE 20 MG TABLET PO SCH (08:54)
[2020-05-16] MEDS: ARIPiprazole 10 MG TABLET PO SCH (08:54)
[2020-05-16] MEDS: PANTOPRAZOLE SODIUM 40 MG DR TABLET PO SCH (08:54)
[2020-05-16] MEDS: LevETIRAcetam 500 MG TABLET PO SCH ×2 (08:55→16:11)
[2020-05-16 12:00] VITALS: BP 100/57
[2020-05-16 16:40] VITALS: BP 97/44
[2020-05-16] MEDS: TraMADol HCL 50 MG TABLET PO PRN (17:57)
[2020-05-16 19:05] VITALS: BP 110/53
[2020-05-17 08:19] VITALS: BP 103/62
[2020-05-17] MEDS: ARIPiprazole 10 MG TABLET PO SCH (08:42)
[2020-05-17] MEDS: LevETIRAcetam 500 MG TABLET PO SCH ×2 (08:42→16:15)
[2020-05-17] MEDS: PANTOPRAZOLE SODIUM 40 MG DR TABLET PO SCH (08:42)
[2020-05-17] MEDS: POTASSIUM CHLORIDE 20 MEQ ER TABLET PO SCH (08:42)
[2020-05-17] MEDS: ESCITALOPRAM OXALATE 20 MG TABLET PO SCH (08:42)
[2020-05-17] MEDS: DIVALPROEX SODIUM 500 MG DR TABLET PO SCH ×2 (08:43→20:09)
[2020-05-17 08:51] VITALS: BP 95/62
[2020-05-17] MEDS: BUMETANIDE 1 MG TABLET PO SCH (09:00)
[2020-05-17 09:51] VITALS: BP 81/48
[2020-05-17 10:51] VITALS: BP 92/63
[2020-05-17 13:36] LABS: COVID AG,FIA SOURCE NASOPHARYNGEAL
[2020-05-17 14:14] VITALS: BP 106/68
[2020-05-17 16:00] VITALS: BP 96/53
[2020-05-18 08:00] VITALS: BP 103/64
[2020-05-18] MEDS: LevETIRAcetam 500 MG TABLET PO SCH ×2 (09:57→16:25)
[2020-05-18] MEDS: DIVALPROEX SODIUM 500 MG DR TABLET PO SCH ×2 (09:57→20:36)
[2020-05-18] MEDS: POTASSIUM CHLORIDE 20 MEQ ER TABLET PO SCH (09:58)
[2020-05-18] MEDS: ESCITALOPRAM OXALATE 20 MG TABLET PO SCH (09:58)
[2020-05-18] MEDS: PANTOPRAZOLE SODIUM 40 MG DR TABLET PO SCH (09:58)
[2020-05-18] MEDS: ARIPiprazole 10 MG TABLET PO SCH (09:58)
[2020-05-18 16:00] VITALS: BP 98/62
[2020-05-19 08:51] VITALS: BP 141/82
[2020-05-19] MEDS: ARIPiprazole 10 MG TABLET PO SCH (09:20)
[2020-05-19] MEDS: BUMETANIDE 1 MG TABLET PO SCH (09:20)
[2020-05-19] MEDS: ESCITALOPRAM OXALATE 20 MG TABLET PO SCH (09:21)
[2020-05-19] MEDS: DIVALPROEX SODIUM 500 MG DR TABLET PO SCH ×2 (09:23→20:40)
[2020-05-19] MEDS: PANTOPRAZOLE SODIUM 40 MG DR TABLET PO SCH (09:23)
[2020-05-19] MEDS: POTASSIUM CHLORIDE 20 MEQ ER TABLET PO SCH (09:23)
[2020-05-19] MEDS: LevETIRAcetam 500 MG TABLET PO SCH ×2 (09:23→16:37)
[2020-05-19] MEDS: TraMADol HCL 50 MG TABLET PO PRN (12:28)
[2020-05-19 16:24] VITALS: BP 106/68
[2020-05-20 04:05] VITALS: BP 106/74
[2020-05-20] MEDS: TraMADol HCL 50 MG TABLET PO PRN (04:22)
[2020-05-20 08:00] VITALS: BP 116/63
[2020-05-20] MEDS: ESCITALOPRAM OXALATE 20 MG TABLET PO SCH (10:27)
[2020-05-20] MEDS: LevETIRAcetam 500 MG TABLET PO SCH ×2 (10:27→17:10)
[2020-05-20] MEDS: ARIPiprazole 10 MG TABLET PO SCH (10:27)
[2020-05-20] MEDS: PANTOPRAZOLE SODIUM 40 MG DR TABLET PO SCH (10:27)
[2020-05-20] MEDS: DIVALPROEX SODIUM 500 MG DR TABLET PO SCH ×2 (10:27→20:18)
[2020-05-20] MEDS: POTASSIUM CHLORIDE 20 MEQ ER TABLET PO SCH (10:27)
[2020-05-21 08:00] VITALS: BP 123/79
[2020-05-21] MEDS: BUMETANIDE 1 MG TABLET PO SCH (09:51)
[2020-05-21] MEDS: ARIPiprazole 10 MG TABLET PO SCH (09:51)
[2020-05-21] MEDS: POTASSIUM CHLORIDE 20 MEQ ER TABLET PO SCH (09:51)
[2020-05-21] MEDS: DIVALPROEX SODIUM 500 MG DR TABLET PO SCH ×2 (09:51→20:08)
[2020-05-21] MEDS: LevETIRAcetam 500 MG TABLET PO SCH ×2 (09:51→16:02)
[2020-05-21] MEDS: PANTOPRAZOLE SODIUM 40 MG DR TABLET PO SCH (09:51)
[2020-05-21] MEDS: ESCITALOPRAM OXALATE 20 MG TABLET PO SCH (09:51)
[2020-05-21 16:17] VITALS: BP 97/64
[2020-05-21] MEDS: TraMADol HCL 50 MG TABLET PO PRN (16:19)
[2020-05-22 08:00] VITALS: BP 136/78
[2020-05-22] MEDS: POTASSIUM CHLORIDE 20 MEQ ER TABLET PO SCH (09:18)
[2020-05-22] MEDS: PANTOPRAZOLE SODIUM 40 MG DR TABLET PO SCH (09:18)
[2020-05-22] MEDS: DIVALPROEX SODIUM 500 MG DR TABLET PO SCH ×2 (09:18→20:22)
[2020-05-22] MEDS: LevETIRAcetam 500 MG TABLET PO SCH ×2 (09:18→16:13)
[2020-05-22] MEDS: ARIPiprazole 10 MG TABLET PO SCH (09:18)
[2020-05-22] MEDS: ESCITALOPRAM OXALATE 20 MG TABLET PO SCH (09:19)
[2020-05-22 16:00] VITALS: BP 97/62
[2020-05-22] MEDS: TraMADol HCL 50 MG TABLET PO PRN (19:10)
[2020-05-22 19:15] VITALS: BP 113/74
[2020-05-23 08:00] VITALS: BP 136/77
[2020-05-23] MEDS: ARIPiprazole 10 MG TABLET PO SCH (08:17)
[2020-05-23] MEDS: BUMETANIDE 1 MG TABLET PO SCH (08:17)
[2020-05-23] MEDS: DIVALPROEX SODIUM 500 MG DR TABLET PO SCH ×2 (08:17→20:15)
[2020-05-23] MEDS: LevETIRAcetam 500 MG TABLET PO SCH ×2 (08:18→16:04)
[2020-05-23] MEDS: ESCITALOPRAM OXALATE 20 MG TABLET PO SCH (08:18)
[2020-05-23] MEDS: POTASSIUM CHLORIDE 20 MEQ ER TABLET PO SCH (08:18)
[2020-05-23] MEDS: PANTOPRAZOLE SODIUM 40 MG DR TABLET PO SCH (08:18)
[2020-05-23 16:05] VITALS: BP 101/71
[2020-05-23] MEDS: TraMADol HCL 50 MG TABLET PO PRN (21:33)
[2020-05-24] MEDS: POTASSIUM CHLORIDE 20 MEQ ER TABLET PO SCH (07:58)
[2020-05-24] MEDS: ARIPiprazole 10 MG TABLET PO SCH (07:58)
[2020-05-24] MEDS: LevETIRAcetam 500 MG TABLET PO SCH ×2 (07:58→16:37)
[2020-05-24] MEDS: DIVALPROEX SODIUM 500 MG DR TABLET PO SCH ×2 (07:58→19:57)
[2020-05-24] MEDS: PANTOPRAZOLE SODIUM 40 MG DR TABLET PO SCH (07:59)
[2020-05-24] MEDS: ESCITALOPRAM OXALATE 20 MG TABLET PO SCH (07:59)
[2020-05-24 08:26] VITALS: BP 100/56
[2020-05-24] MEDS: TraMADol HCL 50 MG TABLET PO PRN ×2 (08:26→16:48)
[2020-05-24 14:57] LABS: COVID AG,FIA SOURCE NASOPHARYNGEAL
[2020-05-24 16:48] VITALS: BP 112/67
[2020-05-25 08:00] VITALS: BP 105/70
[2020-05-25] MEDS: PANTOPRAZOLE SODIUM 40 MG DR TABLET PO SCH (09:06)
[2020-05-25] MEDS: LevETIRAcetam 500 MG TABLET PO SCH ×2 (09:07→16:19)
[2020-05-25] MEDS: DIVALPROEX SODIUM 500 MG DR TABLET PO SCH ×2 (09:07→20:09)
[2020-05-25] MEDS: ESCITALOPRAM OXALATE 20 MG TABLET PO SCH (09:08)
[2020-05-25] MEDS: ARIPiprazole 10 MG TABLET PO SCH (09:08)
[2020-05-25] MEDS: POTASSIUM CHLORIDE 20 MEQ ER TABLET PO SCH (09:08)
[2020-05-25] MEDS: BUMETANIDE 1 MG TABLET PO SCH (09:09)
[2020-05-25 16:00] VITALS: BP 128/67
[2020-05-26] VITALS: BP 98/64
[2020-05-26] MEDS: TraMADol HCL 50 MG TABLET PO PRN ×3 (00:01→19:39)
[2020-05-26 08:34] VITALS: BP 102/69
[2020-05-26] MEDS: LevETIRAcetam 500 MG TABLET PO SCH ×2 (09:00→16:06)
[2020-05-26] MEDS: DIVALPROEX SODIUM 500 MG DR TABLET PO SCH ×2 (09:00→20:20)
[2020-05-26] MEDS: ARIPiprazole 10 MG TABLET PO SCH (09:00)
[2020-05-26] MEDS: PANTOPRAZOLE SODIUM 40 MG DR TABLET PO SCH (09:00)
[2020-05-26] MEDS: POTASSIUM CHLORIDE 20 MEQ ER TABLET PO SCH (09:00)
[2020-05-26] MEDS: ESCITALOPRAM OXALATE 20 MG TABLET PO SCH (09:00)
[2020-05-26 10:20] VITALS: BP 100/57
[2020-05-26 11:24] VITALS: BP 102/62
[2020-05-26 16:00] VITALS: BP 119/76
[2020-05-26 19:39] VITALS: BP 112/79
[2020-05-27 02:03] VITALS: BP 127/63
[2020-05-27 08:00] VITALS: BP 109/70
[2020-05-27] MEDS: ARIPiprazole 10 MG TABLET PO SCH (09:37)
[2020-05-27] MEDS: BUMETANIDE 1 MG TABLET PO SCH (09:37)
[2020-05-27] MEDS: ESCITALOPRAM OXALATE 20 MG TABLET PO SCH (09:37)
[2020-05-27] MEDS: PANTOPRAZOLE SODIUM 40 MG DR TABLET PO SCH (09:38)
[2020-05-27] MEDS: POTASSIUM CHLORIDE 20 MEQ ER TABLET PO SCH (09:38)
[2020-05-27] MEDS: LevETIRAcetam 500 MG TABLET PO SCH ×2 (09:38→16:55)
[2020-05-27] MEDS: DIVALPROEX SODIUM 500 MG DR TABLET PO SCH ×2 (09:38→21:11)
[2020-05-27 16:00] VITALS: BP 113/57
[2020-05-28 08:50] VITALS: BP 113/72
[2020-05-28] MEDS ORDERED: ESCI20TA87 PO (10:05)
[2020-05-28] MEDS ORDERED: PANT-31 PO (10:08)
[2020-05-28] MEDS: ARIPiprazole 10 MG TABLET PO SCH (10:14)
[2020-05-28] MEDS: ESCITALOPRAM OXALATE 20 MG TABLET PO SCH (10:14)
[2020-05-28] MEDS: PANTOPRAZOLE SODIUM 40 MG DR TABLET PO SCH (10:15)
[2020-05-28] MEDS: DIVALPROEX SODIUM 500 MG DR TABLET PO SCH (10:15)
[2020-05-28] MEDS: POTASSIUM CHLORIDE 20 MEQ ER TABLET PO SCH (10:16)
[2020-05-28] MEDS: LevETIRAcetam 500 MG TABLET PO SCH (10:16)
== END 2020-05-28 11:25 | disposition home or self-care (01) | DRG 885 ==
LOC: 3EX 13:04
DX: F33.2 Major depressive disorder, recurrent severe without psychotic features (principal); R45.851 Suicidal ideations; N39.0 Urinary tract infection, site not specified; R65.10 Systemic inflammatory response syndrome (SIRS) of non-infectious origin without acute organ dysfunction; E78.5 Hyperlipidemia, unspecified; G40.909 Epilepsy, unspecified, not intractable, without status epilepticus; I50.9 Heart failure, unspecified; K21.9 Gastro-esophageal reflux disease without esophagitis; Z20.822 Contact with and (suspected) exposure to COVID-19; Z79.899 Other long term (current) drug therapy; Z59.0 Homelessness; K59.00 Constipation, unspecified; F03.90 Unspecified dementia, unspecified severity, without behavioral disturbance, psychotic disturbance, mood disturbance, and anxiety; Z90.49 Acquired absence of other specified parts of digestive tract
CPT/HCPCS: 87081; 87086; 87426; 97110; 97166; 97530; 97535; G0378